=== PATIENT | female | born 1940 | race Caucasian/White ===

== ENCOUNTER 2016-09-29 13:19 | Inpatient (IN) | payer OTHER ==
[~2016-09-29] VITALS: Ht 157.5 cm; Wt 77.0 kg
[~2016-09-29 13:19] MED LIST: ALBU1AER9 INH; ASPI81TA21 PO; CITA40TA4 PO; CLOP1TAB15 PO; CRS20 PO; CYAN100020 PO; FLUT0.15; GARL400T4; HYZ/10015 PO; IMDSR60 PO; INSDGIPEN SC; LPR25 PO; METR0.754; MOME100A INH; NITR0.4S UT; NVLGI/PEN SC; OMEG10007 PO; PRLSR20 PO
[2016-09-29] MEDS ORDERED: ACETAMINOPHEN 500 MG TAB PO STA (13:49)
--- NOTE | 2016-09-29 13:55 | EMERGENCY ROOM VISIT NOTE ---
History First contact with patient: 13:36 Chief Complaint: LEG PAIN,LEG INJURY Stated Complaint: RIGHT LEG PAIN History of Present Illness The patient is a 76 year old female who presents to the Emergency Room via private vehicle accompanied by female with complaints of "right leg pain". The patient states that approximately one week ago she developed pain from the right groin down her right leg. She states that she is unable to identify any trauma or injury to the region. She rates the pain as a 10/10 and notes that it is been increasing over the past week. She has been using Tylenol at her assisted living facility without relief. She's never had this before. She denies any falls, trauma, urinary burning or vaginal discharge, abdominal pain, dental pain, fevers, chills. The patient was seen by her family doctor today around 11 AM and had x-rays of the right leg performed and then decided to come here for further evaluation and management. Review of Systems A complete 10-point Review of Systems was discussed with the patient, with pertinent positives and negatives listed in the History of Present Illness. All remaining Review of Systems questions can be considered negative unless otherwise specified. Past Medical/Surgical History Medical Problems: (1) Acute cholecystitis (2) Anemia in chronic kidney disease (CKD) (3) Breast cancer (4) CAD (coronary artery disease) (5) Carotid stenosis, non-symptomatic (6) CKD (chronic kidney disease), stage III (7) Depression (8) DIAB OLIVE WO COMPL, TYPE II OR UNSPEC TYPE, NOT UNCNTRLD (9) Diabetic gastroparesis (10) GERD (gastroesophageal reflux disease) (11) HYPERTENSION NOS (12) Hypoglycemia (13) LBBB (left bundle branch block) (14) Migraines (15) Severe right groin pain (16) Vertigo Surgical Problems: (1) H/O breast biopsy (2) H/O shoulder surgery (3) H/O tubal ligation (4) S/P angioplasty with stent (5) S/P appendectomy Family History Diabetes mellitus MOTHER FH: leukemia SISTER Heart disease FATHER MOTHER BROTHER Hypertension FATHER MOTHER Social History Smoking Status: Never Smoker Alcohol Use: none Drug Use: none Housing Status: lives alone Occupation Status: retired Current/Historical Medications Scheduled Albuterol Hfa (Ventolin Hfa), 2-4 PUFFS INH Q6H Anastrozole (Arimidex), 1 MG PO DAILY Aspirin Enteric Coated (Ecotrin Or Generic), 81 MG PO DAILY Clopidogrel (Plavix), 75 MG PO DAILY Cyanocobalamin (Vitamin B12), 1,000 MCG PO DAILY Docusate Sodium (Colace), 100 MG PO BID Erythromycin Delay Rel (Marek-Tab Delay Rel), 250 MG PO DAILY Fluticasone Propionate (Nasal) (Flonase Allergy Relief), 2 SPRAY NA DAILY Insulin Aspart (Novolog), 6 UNITS SQ QPM Insulin Aspart (Novolog), 10 UNITS SQ DAILYBL Insulin Aspart (Novolog), 4 UNITS SQ DAILYBB Insulin Glargine (Lantus), 60 UNITS SC QPM Isosorbide Mononitrate (Isosorbide Mononitrate ER), 60 MG PO DAILY Losartan Potassium (Cozaar), 100 MG PO DAILY Magnesium Oxide (Mag-Ox), 400 MG PO DAILY Metoprolol Tartrate (Lopressor), 25 MG PO BID Nitroglycerin (Nitrostat), 0.4 MG UT PRN Omeprazole (Prilosec), 20 MG PO DAILY Rosuvastatin Calcium (Crestor), 40 MG PO DAILY Senna/Docusate Sod (Senokot S), 1 TAB PO DAILY Scheduled PRN Mometasone Furoate-Formoterol (Dulera 100/5 Mcg), 1 AER INH for Shortness of Breath Miscellaneous Medications Dextrose (Diabetic Use) (Insta-Glucose) Metronidazole Hcl (Metronidazole) Pramoxine Hcl-Zinc Oxide (Tronolane) Allergies Coded Allergies: TARAH Inhibitors (Verified Allergy, Unknown, 09/29/16) Guaifenesin (Verified Allergy, Unknown, 09/29/16) Metformin (Verified Allergy, Unknown, 09/29/16) Phenylephrine (Verified Allergy, Unknown, 09/29/16) Physical Exam Vital Signs Date Time Temp Pulse Resp B/P (MAP) Pulse Ox O2 Delivery O2 Flow Rate FiO2 09/29/16 19:06 80 16 09/29/16 19:01 153/65 09/29/16 18:36 79 20 94 09/29/16 18:31 169/62 09/29/16 18:06 78 16 95 09/29/16 18:01 151/54 09/29/16 17:36 80 8 95 09/29/16 17:32 155/55 09/29/16 17:06 81 14 96 09/29/16 17:01 165/58 09/29/16 17:00 79 12 96 09/29/16 16:46 152/59 09/29/16 16:00 79 16 97 09/29/16 15:31 156/64 09/29/16 15:30 75 20 97 09/29/16 15:25 74 09/29/16 15:23 75 16 156/59 97 09/29/16 15:22 95 Room Air 09/29/16 15:21 156/59 09/29/16 13:22 36.5 74 18 147/63 97 Room Air Physical Exam VITAL SIGNS - Vital signs and nursing notes were reviewed. Patient is afebrile , blood pressure 147/63, nontoxic tachycardic and saturating well on room air at 97%. GENERAL -76-year-old female appearing her stated age who is in no acute distress. Communicates well with provider and answers questions appropriately. SKIN - Without rashes. The skin and integument overlying the right leg is unremarkable. HEAD - NC/AT. LUNGS - Chest wall symmetric without accessory muscle use, intercostals retractions, or central cyanosis. Normal vesicular breath sounds CTA B/L. No wheezes, rales, or rhonchi appreciated. CARDIAC - RRR with S1/S2. No murmur, rubs, or gallops appreciated. ABDOMEN - Abdominal contour without pulsations or visible masses. BS normoactive all four quadrants. There is tenderness in the region just superior to the periumbilical region. No palpable masses, hepatosplenomegaly, or ascites noted. EXTREMITIES - No clubbing or peripheral cyanosis. No pretibial edema present. There is tenderness to palpation overlying the right inguinal region anteriorly across the thigh into the zhou region. There is no foot tenderness. There is full range of motion of this region. There is no shortening or rotation of the leg. She is neurovascularly intact in the right lower extremity. +5/5 strength noted in UE/LE bilaterally. NEUROLOGIC - Cranial nerves II through XII grossly intact. Sensory intact to light touch throughout. PSYCH - A&O. Pt is very pleasant and interacts well with examiner. Medical Decision & Procedures ER Provider Diagnostic Interpretation: CT SCAN OF THE ABDOMEN AND PELVIS WITHOUT CONTRAST CLINICAL HISTORY: Right inguinal pain and periumbilical pain COMPARISON STUDY: 04/19/2007 TECHNIQUE: CT scan of the abdomen and pelvis was performed from the lung bases to the proximal femurs. Images are reviewed in the axial, sagittal, and coronal planes. IV contrast was not administered for this examination. CT DOSE: 851.15 mGycm FINDINGS: Lower chest: There are small bilateral pleural effusions. There is mild septal edema. There is bibasal atelectasis. The heart is mildly enlarged. There is a small hiatal hernia. Liver: The liver capsule is slightly serrated. This may indicate early cirrhosis. No focal masses are visualized in this noncontrast study. Gallbladder: Cholelithiasis. There is mild pericholecystic fluid. The gallbladder is not significantly distended. Spleen: The spleen is top normal in size measuring 11.7 cm. Pancreas: Unremarkable. Adrenal glands: Unremarkable. Kidneys: There is a 1 cm right renal calculus. There is a 12 mm exophytic left renal mass likely representing a cyst. There is mild prominence of the right renal collecting system and proximal ureter. No ureteral calculi are visualized. Bowel: Evaluation the bowel is limited due to the lack of intravenous and oral contrast. There is colonic diverticulosis. No acute peridiverticular inflammatory changes are visualized. There is a suture line at the cecal tip, possibly secondary to a prior appendectomy. The appendix is not visualized. There is evidence of a mesh repair of a ventral hernia. There are no transition zones indicate bowel obstruction. There is no free air. There is mild rectosigmoid wall thickening versus a nondistended segment. Peritoneum: There is no intraperitoneal free air or abdominal ascites. Vasculature: The abdominal aorta is normal in course and caliber. Adenopathy: None. Pelvic viscera: There is mild distention of the bladder Skeletal structures: No destructive osseous lesions are seen. IMPRESSION: 1. No evidence of bowel obstruction. No evidence of free air 2. Cholelithiasis. Mild pericholecystic fluid. No evidence of gallbladder distention 3. Cirrhotic liver morphology 4. Bilateral pleural effusions 5. Right-sided nephrolithiasis. Minimal fullness the right renal collecting system. No ureteral or bladder calculi identified 6. Mild bladder distention 7. Diverticulosis. No evidence of acute diverticulitis 8. Rectosigmoid wall thickening versus a nondistended segment Electronically signed by: Vishnu Ji M.D. 09/29/2016 4:26 PM Dictated Date/Time: 09/29/2016 4:16 PM RIGHT FEMUR 2 VIEWS ROUTINE CLINICAL HISTORY: 76 years-old Female presenting with Right leg pain from groin to ankle. TECHNIQUE: Frontal and lateral views of the right femur were obtained. COMPARISON: None. FINDINGS: Right hip joint congruent. Joint congruent. No significant degenerative change of the hip joint, however, apparent medial joint space loss at the right hip. No acute fracture. IMPRESSION: 1. No acute osseous injury of the right femur. Electronically signed by: Guevara Cruz M.D. 09/29/2016 2:36 PM Dictated Date/Time: 09/29/2016 2:35 PM [~ rep ct add3]] RIGHT VENOUS DOPP LOWER EXT UNILAT CLINICAL HISTORY: Right leg pain and edema Right pain. Edema. TECHNIQUE: Venous Doppler COMPARISON STUDY: None FINDINGS: Normal study IMPRESSION: Normal study The above report was generated using voice recognition software. It may contain grammatical, syntax or spelling errors. Electronically signed by: Jose Wood M.D. 09/29/2016 3:12 PM Dictated Date/Time: 09/29/2016 3:12 PM RIGHT TIBIA/FIBULA 2 VIEWS ROUTINE HISTORY: 76 years Female Right leg pain from groin to ankle COMPARISON: None available. TECHNIQUE: Frontal and lateral views of the right tibia and fibula. FINDINGS: The bones are mildly demineralized. There is moderate medial and patellofemoral compartment osteoarthritis with mild to moderate lateral compartment disease. There appears to be a small moderate joint effusion about the knee. No acute fracture or dislocation. There is spurring about the calcaneus. Vascular calcifications are seen. IMPRESSION: 1. Degenerative changes as above without acute fracture or dislocation. 2. Moderate knee joint effusion. 3. Peripheral vascular disease. The above report was generated using voice recognition software. It may contain grammatical, syntax or spelling errors. Laboratory Results 09/29/16 14:06 Red Blood Count 3.30, Mean Corpuscular Volume 98.8, Mean Corpuscular Hemoglobin 32.7, Mean Corpuscular Hemoglobin Concent 33.1, Mean Platelet Volume 9.7, Neutrophils (%) (Auto) 52.9, Lymphocytes (%) (Auto) 32.3, Monocytes (%) (Auto) 10.4, Eosinophils (%) (Auto) 3.6, Basophils (%) (Auto) 0.7, Neutrophils # (Auto ) 4.34, Lymphocytes # (Auto) 2.66, Monocytes # (Auto) 0.86, Eosinophils # (Auto ) 0.30, Basophils # (Auto) 0.06 09/29/16 14:06 Test 09/29/16 14:06 09/29/16 15:16 White Blood Count 8.23 K/uL (4.8-10.8) Red Blood Count 3.30 M/uL (4.2-5.4) Hemoglobin 10.8 g/dL (12.0-16.0) Hematocrit 32.6 % (37-47) Mean Corpuscular Volume 98.8 fL (80-100) Mean Corpuscular Hemoglobin 32.7 pg (25-34) Mean Corpuscular Hemoglobin Concent 33.1 g/dl (32-36) Platelet Count 136 K/uL (130-400) Mean Platelet Volume 9.7 fL (7.4-10.4) Neutrophils (%) (Auto) 52.9 % Lymphocytes (%) (Auto) 32.3 % Monocytes (%) (Auto) 10.4 % Eosinophils (%) (Auto) 3.6 % Basophils (%) (Auto) 0.7 % Neutrophils # (Auto) 4.34 K/uL (1.4-6.5) Lymphocytes # (Auto) 2.66 K/uL (1.2-3.4) Monocytes # (Auto) 0.86 K/uL (0.11-0.59) Eosinophils # (Auto) 0.30 K/uL (0-0.5) Basophils # (Auto) 0.06 K/uL (0-0.2) RDW Standard Deviation 51.4 fL (36.4-46.3) RDW Coefficient of Variation 14.3 % (11.5-14.5) Immature Granulocyte % (Auto) 0.1 % Immature Granulocyte # (Auto) 0.01 K/uL (0.00-0.02) Urine Color YELLOW Urine Appearance CLOUDY (CLEAR) Urine pH 7.5 (4.5-7.5) Urine Specific [place] 1.012 (1.000-1.030) Urine Protein TRACE (NEG) Urine Glucose (UA) NEG (NEG) Urine Ketones NEG (NEG) Urine Occult Blood 1+ (NEG) Urine Nitrite NEG (NEG) Urine Bilirubin NEG (NEG) Urine Urobilinogen NEG (NEG) Urine Leukocyte Esterase LARGE (NEG) Urine WBC (Auto) >30 /hpf (0-5) Urine RBC (Auto) 0-4 /hpf (0-4) Urine Hyaline Casts (Auto) 1-5 /lpf (0-5) Urine Epithelial Cells (Auto) 5-10 /lpf (0-5) Urine Bacteria (Auto) NEG (NEG) Anion Gap 8.0 mmol/L (3-11) Est Creatinine Clear Calc Drug Dose 22.6 ml/min Estimated GFR () 27.2 Estimated GFR (Non- 23.5 BUN/Creatinine Ratio 11.7 (10-20) Calcium Level 9.1 mg/dl (8.5-10.1) Total Bilirubin 0.4 mg/dl (0.2-1) Aspartate Amino Transf (AST/SGOT) 42 U/L (15-37) Alanine Aminotransferase (ALT/SGPT) 27 U/L (12-78) Alkaline Phosphatase 163 U/L (45-117) Total Protein 7.6 gm/dl (6.4-8.2) Albumin 2.7 gm/dl (3.4-5.0) Globulin 4.9 gm/dl (2.5-4.0) Albumin/Globulin Ratio 0.6 (0.9-2) Prothrombin Time 11.4 SECONDS (9.0-12.0) Prothromb Time International Ratio 1.1 (0.9-1.1) Activated Partial Thromboplast Time 28.2 SECONDS (21.0-31.0) Partial Thromboplastin Ratio 1.1 Medications Administered Medications (Trade) Dose Ordered Sig/Audra Route Start Time Stop Time Status Last Admin Dose Admin Acetaminophen (Tylenol Tab) 500 mg NOW STAT PO 09/29/16 13:49 09/29/16 13:52 DC 09/29/16 14:02 500 MG Piperacillin Sod/ Tazobactam Sod (Zosyn Iv) 4.5 gm NOW STAT IV 09/29/16 17:02 09/29/16 17:03 DC 09/29/16 17:02 4.5 GM Sodium Chloride 1,000 ml @ 200 mls/hr Q5H IV 09/29/16 17:15 09/29/16 21:23 DC 09/29/16 17:14 200 MLS/HR Hydromorphone HCl (Dilaudid Inj) 0.5 mg NOW STAT IV 09/29/16 19:03 09/29/16 19:05 DC 09/29/16 19:46 0.5 MG Ondansetron HCl (Zofran Inj) 4 mg NOW STAT IV 09/29/16 19:03 09/29/16 19:05 DC 09/29/16 19:45 4 MG Medical Decision Patient was seen and evaluated as above. After obtaining a thorough history and physical examination IV access was initiated and the above workup was performed. Patient was asked to us today with right leg pain. However on exam , abdominal pain is appreciated. Urinalysis reveals a UTI likely. CBC reveals no leukocytosis. Hemoglobin of 10.8 is noted. Coags are normal. CMP reveals BUN/creatinine elevated at 23, and 2.0 respectively. Random glucose elevated at 209. AST elevated at 42. Alkaline phosphatase high at 163. Radiographs of the femur, and tib-fib region are unremarkable except for a small effusion in the knee. Lower cavity ultrasound for DVT is negative. Abdomen and pelvis CT without intravenous or oral contrast was ordered with results as above. There is no acute or infectious finding however, there is pericholecystic fluid and gallstones. There is concern with the patient's correlated examination findings that there could be an early acute cholecystitis. Because of this and the patient's right leg pain of unknown etiology I do believe that further evaluation and management. She was given 4.5 g of Zosyn 1 and 200 mL of fluid per hour In the emergency department. I believe that inpatient management is warranted. Patient was also evaluated personally by my attending. She was given Tylenol initially for her pain, and then followed by Dilaudid and Zofran. Please refer to further documentation regarding her stay. In evaluation treatment this patient following differential diagnoses entertained: DVT, occult fracture, hip fracture, femur fracture, septic joint, sepsis, pyelonephritis, renal calculi, acute cholecystitis, UTI, among others. Impression Primary Impression: Leg pain, right Additional Impressions: Anemia Cholelithiasis pericholecystc fluid identified on CT Departure Information Dispostion Admitted as an inpatient Condition FAIR Referrals Mims, Johana F.,M.D. (PCP) Patient Instructions My [facility] Problem Qualifiers
[2016-09-29] MEDS ORDERED: SENN-65 PO (14:05)
[2016-09-29] MEDS ORDERED: NVLG SQ ×3 (14:05)
[2016-09-29] MEDS ORDERED: DOCU-94 PO (14:05)
[2016-09-29] MEDS ORDERED: ROSU40TA PO (14:05)
[2016-09-29] MEDS ORDERED: MTRCR45 (14:05)
[2016-09-29] MEDS ORDERED: ERY250 PO (14:05)
[2016-09-29] MEDS ORDERED: ISOS-10 PO (14:05)
[2016-09-29] MEDS ORDERED: DEXT40GE (14:05)
[2016-09-29] MEDS ORDERED: PRAM1CRE4 (14:05)
[2016-09-29] MEDS ORDERED: INSDGI SC (14:05)
[2016-09-29] MEDS ORDERED: ANAS1TAB19 PO (14:05)
[2016-09-29] MEDS ORDERED: MAGN400T6 PO (14:05)
[2016-09-29] MEDS ORDERED: VNTHFA/IN INH (14:05)
[2016-09-29] MEDS ORDERED: LOSA100T65 PO (14:05)
[2016-09-29] MEDS ORDERED: MOME100A INH (14:05)
[2016-09-29 14:19] LABS: BASO % 0.7 %; BASO ABS # 0.06 K/uL (0-0.2); COMPLETE YES; EOS % 3.6 %; HEMATOCRIT 32.6 % (37-47); IG% 0.1 %; LYMPH % 32.3 %; LYMPH ABS # 2.66 K/uL (1.2-3.4); MEAN CELL VOLUME 98.8 fL (80-100); MEAN CORPUSCULAR HEMOGLOBIN 32.7 pg (25-34); MEAN CORPUSCULAR HGB CONC 33.1 g/dl (32-36); MEAN PLATELET VOLUME 9.7 fL (7.4-10.4); MONO % 10.4 %; NEUT % 52.9 %; PLATELET COUNT 136 K/uL (130-400); WHITE BLOOD COUNT 8.23 K/uL (4.8-10.8)
[2016-09-29 14:25] LABS: URINE APPEARANCE CLOUDY (CLEAR); URINE BILIRUBIN NEG (NEG); URINE COLOR YELLOW; URINE NITRITE NEG (NEG); URINE PH 7.5 (4.5-7.5); URINE SPECIFIC GRAVITY 1.012 (1.000-1.030); UROBILINOGEN NEG (NEG); ZZUR CULT IF INDIC CLEAN CATCH YES
[2016-09-29 14:35] LABS: BUN/CREATININE RATIO 11.7 (10-20); CALCIUM 9.1 mg/dl (8.5-10.1); POTASSIUM 4.7 mmol/L (3.5-5.1)
[2016-09-29 14:38] LABS: ALB/GLOB RATIO 0.6 (0.9-2)
--- NOTE | 2016-09-29 14:38 | DIAGNOSTIC IMAGING REPORT ---
RIGHT FEMUR 2 VIEWS ROUTINE CLINICAL HISTORY: 76 years-old Female presenting with Right leg pain from groin to ankle. TECHNIQUE: Frontal and lateral views of the right femur were obtained. COMPARISON: None. FINDINGS: Right hip joint congruent. Joint congruent. No significant degenerative change of the hip joint, however, apparent medial joint space loss at the right hip. No acute fracture. IMPRESSION: 1. No acute osseous injury of the right femur. Electronically signed by: Guevara Cruz M.D. 09/29/2016 2:36 PM Dictated Date/Time: 09/29/2016 2:35 PM
--- NOTE | 2016-09-29 14:40 | DIAGNOSTIC IMAGING REPORT ---
RIGHT TIBIA/FIBULA 2 VIEWS ROUTINE HISTORY: 76 years Female Right leg pain from groin to ankle COMPARISON: None available. TECHNIQUE: Frontal and lateral views of the right tibia and fibula. FINDINGS: The bones are mildly demineralized. There is moderate medial and patellofemoral compartment osteoarthritis with mild to moderate lateral compartment disease. There appears to be a small moderate joint effusion about the knee. No acute fracture or dislocation. There is spurring about the calcaneus. Vascular calcifications are seen. IMPRESSION: 1. Degenerative changes as above without acute fracture or dislocation. 2. Moderate knee joint effusion. 3. Peripheral vascular disease. The above report was generated using voice recognition software. It may contain grammatical, syntax or spelling errors. Electronically signed by: David Hoffman M.D. 09/29/2016 2:38 PM Dictated Date/Time: 09/29/2016 2:36 PM
[2016-09-29 14:51] LABS: MANUAL MICROSCOPIC REQUIRED? NO; REVIEW REQ? NO; SULFASALICYLIC ACID POS (NEG)
--- NOTE | 2016-09-29 15:13 | DIAGNOSTIC IMAGING REPORT ---
RIGHT VENOUS DOPP LOWER EXT UNILAT CLINICAL HISTORY: Right leg pain and edema Right pain. Edema. TECHNIQUE: Venous Doppler COMPARISON STUDY: None FINDINGS: Normal study IMPRESSION: Normal study The above report was generated using voice recognition software. It may contain grammatical, syntax or spelling errors. Electronically signed by: Jose Wood M.D. 09/29/2016 3:12 PM Dictated Date/Time: 09/29/2016 3:12 PM
[2016-09-29 15:48] LABS: INR 1.1 (0.9-1.1); PARTIAL THROMBOPLASTIN RATIO 1.1; PROTHROMBIN TIME (PATIENT) 11.4 SECONDS (9.0-12.0)
--- NOTE | 2016-09-29 16:28 | DIAGNOSTIC IMAGING REPORT ---
CT SCAN OF THE ABDOMEN AND PELVIS WITHOUT CONTRAST CLINICAL HISTORY: Right inguinal pain and periumbilical pain COMPARISON STUDY: 04/19/2007 TECHNIQUE: CT scan of the abdomen and pelvis was performed from the lung bases to the proximal femurs. Images are reviewed in the axial, sagittal, and coronal planes. IV contrast was not administered for this examination. CT DOSE: 851.15 mGycm FINDINGS: Lower chest: There are small bilateral pleural effusions. There is mild septal edema. There is bibasal atelectasis. The heart is mildly enlarged. There is a small hiatal hernia. Liver: The liver capsule is slightly serrated. This may indicate early cirrhosis. No focal masses are visualized in this noncontrast study. Gallbladder: Cholelithiasis. There is mild pericholecystic fluid. The gallbladder is not significantly distended. Spleen: The spleen is top normal in size measuring 11.7 cm. Pancreas: Unremarkable. Adrenal glands: Unremarkable. Kidneys: There is a 1 cm right renal calculus. There is a 12 mm exophytic left renal mass likely representing a cyst. There is mild prominence of the right renal collecting system and proximal ureter. No ureteral calculi are visualized. Bowel: Evaluation the bowel is limited due to the lack of intravenous and oral contrast. There is colonic diverticulosis. No acute peridiverticular inflammatory changes are visualized. There is a suture line at the cecal tip, possibly secondary to a prior appendectomy. The appendix is not visualized. There is evidence of a mesh repair of a ventral hernia. There are no transition zones indicate bowel obstruction. There is no free air. There is mild rectosigmoid wall thickening versus a nondistended segment. Peritoneum: There is no intraperitoneal free air or abdominal ascites. Vasculature: The abdominal aorta is normal in course and caliber. Adenopathy: None. Pelvic viscera: There is mild distention of the bladder Skeletal structures: No destructive osseous lesions are seen. IMPRESSION: 1. No evidence of bowel obstruction. No evidence of free air 2. Cholelithiasis. Mild pericholecystic fluid. No evidence of gallbladder distention 3. Cirrhotic liver morphology 4. Bilateral pleural effusions 5. Right-sided nephrolithiasis. Minimal fullness the right renal collecting system. No ureteral or bladder calculi identified 6. Mild bladder distention 7. Diverticulosis. No evidence of acute diverticulitis 8. Rectosigmoid wall thickening versus a nondistended segment Electronically signed by: Vishnu Ji M.D. 09/29/2016 4:26 PM Dictated Date/Time: 09/29/2016 4:16 PM
--- NOTE | 2016-09-29 17:00 | EMERGENCY ROOM VISIT NOTE ---
ED Visit Note First contact with patient: 13:36 Patient was seen by our PA/AGILE TEST LEAD. I was involved in the patient's care and did evaluate the patient myself. I was involved in the care throughout the ER stay. The patient presents with right-sided abdominal pain and some right leg pain. Workup here suggest possible early acute cholecystitis, possible UTI. The patient has had intermittent vomiting. She feels she is worsening. She is not comfortable with discharge home. Admission/observation for IV antibiotics, IV hydration and further care is warranted.
[2016-09-29] MEDS ORDERED: PIPERACILLIN/TAZOBACTAM 4.5 GM/100ML D5W IV STA (17:02)
[2016-09-29] MEDS ORDERED: SODIUM CHLORIDE 0.9% 1000ML 1,000 ML IV SCH (17:15)
[2016-09-29] MEDS ORDERED: ACETAMINOPHEN 325 MG TAB PO PRN (19:00)
[2016-09-29] MEDS ORDERED: ONDANSETRON INJ 2 MG/ML 2 ML VIAL IV PRN (19:00)
[2016-09-29] MEDS ORDERED: GLUCOSE 40% GEL 15 GM TUBE PO PRN (19:00)
[2016-09-29] MEDS ORDERED: GLUCOSE 10 TABS/TUBE PO PRN (19:00)
[2016-09-29] MEDS ORDERED: DEXTROSE 50% 50 ML SYR IV PRN (19:00)
[2016-09-29] MEDS ORDERED: GLUCAGON FOR INJ 1 MG VIAL SQ PRN (19:00)
[2016-09-29] MEDS ORDERED: ONDANSETRON INJ 2 MG/ML 2 ML VIAL IV STA (19:03)
[2016-09-29] MEDS ORDERED: HYDROmorphone INJ 0.5 MG/0.5 ML SYR IV STA (19:03)
[2016-09-29] MEDS ORDERED: HYDROmorphone INJ 0.5 MG/0.5 ML SYR IV PRN (19:30)
[2016-09-29] MEDS ORDERED: NITROGLYCERIN 0.4 MG SL PER TAB CHARGE UT SCH (19:45)
[2016-09-29] MEDS ORDERED: HYDROCORTISONE ACETATE 25 MG SUPP PR PRN (19:45)
[2016-09-29 20:29] VITALS: BP 154/79; PULSE 80; TEMP 36.8; Ht 157.5 cm; Wt 77.0 kg
[2016-09-29] MEDS ORDERED: INSULIN ASPART 100 UNITS/ML 3 ML PEN SC SCH (21:00)
[2016-09-29] MEDS ORDERED: INSULIN GLARGINE SOLOSTAR 100 UNITS/ML 3 ML PEN SC SCH (21:00)
[2016-09-29] MEDS ORDERED: PIPERACILL/TAZOBAC CONSULT ACTIVE PRN (21:30)
[2016-09-29] MEDS: DOCUSATE SODIUM 100 MG CAP PO SCH (22:00)
[2016-09-29] MEDS: HEPARIN SOD 5000 UNIT/0.5 ML CARP SQ SCH (22:39)
[2016-09-29] MEDS: METOPROLOL TARTRATE 25 MG TAB PO SCH (22:39)
--- NOTE | 2016-09-29 22:39 | Surgery Consultation ---
Consultation Date of Consultation: Sep 29, 2016. Attending Physician: Lyric Westfall MD History of Present Illness The patient is a 76 year old female who presents to the Emergency Room via private vehicle accompanied by female with complaints of "right leg pain". The patient states that approximately one week ago she developed pain from the right groin down her right leg. She states that she is unable to identify any trauma or injury to the region. She rates the pain as a 10/10 and notes that it is been increasing over the past week. She has been using Tylenol at her assisted living facility without relief. She's never had this before. She denies any falls, trauma, urinary burning or vaginal discharge, abdominal pain, dental pain, fevers, chills. The patient was seen by her family doctor today around 11 AM and had x-rays of the right leg performed and then decided to come here for further evaluation and management. I got a call for consult this pt based on pt had CT scan which revealing cholelithiasis, now, pt denies abdominal pain, but some nausea, no vomiting, pt denies fever, no diarrhea, Past Medical/Surgical History Medical Problems: (1) Altered mental status Status: Acute (2) Chest pain Status: Acute (3) Chronic kidney disease (CKD) Status: Acute (4) Diabetes Status: Acute (5) Fall in home Status: Acute (6) Headache Status: Acute (7) Hypoglycemia Status: Acute (8) Hypokalemia Status: Acute (9) Hypokalemia Status: Acute (10) Hypomagnesemia Status: Acute (11) Hypomagnesemia Status: Acute (12) Hyponatremia Status: Acute (13) Hypophosphatemia Status: Acute (14) Nausea Status: Acute (15) Pneumonia Status: Acute (16) UTI (urinary tract infection) Status: Acute (17) Weakness Status: Acute Family History Diabetes mellitus MOTHER FH: leukemia SISTER Heart disease FATHER MOTHER BROTHER Hypertension FATHER MOTHER Social History Smoking Status: Never Smoker Smokeless Tobacco Use: No Alcohol Use: none Drug Use: none Housing Status: lives alone Occupation Status: retired Allergies Coded Allergies: TARAH Inhibitors (Verified Allergy, Unknown, 09/29/16) Guaifenesin (Verified Allergy, Unknown, 09/29/16) Metformin (Verified Allergy, Unknown, 09/29/16) Phenylephrine (Verified Allergy, Unknown, 09/29/16) Home Medications Scheduled Albuterol Hfa (Ventolin Hfa), 2-4 PUFFS INH Q6H Anastrozole (Arimidex), 1 MG PO DAILY Aspirin Enteric Coated (Ecotrin Or Generic), 81 MG PO DAILY Clopidogrel (Plavix), 75 MG PO DAILY Cyanocobalamin (Vitamin B12), 1,000 MCG PO DAILY Docusate Sodium (Colace), 100 MG PO BID Erythromycin Delay Rel (Marek-Tab Delay Rel), 250 MG PO DAILY Fluticasone Propionate (Nasal) (Flonase Allergy Relief), 2 SPRAY NA DAILY Insulin Aspart (Novolog), 6 UNITS SQ QPM Insulin Aspart (Novolog), 10 UNITS SQ DAILYBL Insulin Aspart (Novolog), 4 UNITS SQ DAILYBB Insulin Glargine (Lantus), 60 UNITS SC QPM Isosorbide Mononitrate (Isosorbide Mononitrate ER), 60 MG PO DAILY Losartan Potassium (Cozaar), 100 MG PO DAILY Magnesium Oxide (Mag-Ox), 400 MG PO DAILY Metoprolol Tartrate (Lopressor), 25 MG PO BID Nitroglycerin (Nitrostat), 0.4 MG UT PRN Omeprazole (Prilosec), 20 MG PO DAILY Rosuvastatin Calcium (Crestor), 40 MG PO DAILY Senna/Docusate Sod (Senokot S), 1 TAB PO DAILY Scheduled PRN Mometasone Furoate-Formoterol (Dulera 100/5 Mcg), 1 AER INH for Shortness of Breath Miscellaneous Medications Dextrose (Diabetic Use) (Insta-Glucose) Metronidazole Hcl (Metronidazole) Pramoxine Hcl-Zinc Oxide (Tronolane) Current Inpatient Medications Current Inpatient Medications Medications (Trade) Dose Ordered Sig/Audra Route Start Time Stop Time Status Last Admin Dose Admin Acetaminophen (Tylenol Tab) 650 mg Q4H PRN PO 09/29/16 19:00 10/29/16 18:59 Ondansetron HCl (Zofran Inj) 4 mg Q6H PRN IV 09/29/16 19:00 10/29/16 18:59 Heparin Sodium (Porcine) (Heparin Sq 5000 Unit/0.5ml) 5,000 unit Q12H SQ 09/29/16 22:00 10/29/16 21:59 Insulin Aspart (novoLOG ASPART) SLIDING SCALE If C... ACHS SC 09/29/16 21:00 10/29/16 20:59 Glucose (Glucose 40% Gel) 15-30 GRAMS 15 GRAMS... UD PRN PO 09/29/16 19:00 10/29/16 18:59 Glucose (Glucose Chew Tab) 4-8 Tablets 4 Tabl... UD PRN PO 09/29/16 19:00 10/29/16 18:59 Dextrose (Dextrose 50% 50ML Syringe) 25-50ML OF 50% DW IV FOR... UD PRN IV 09/29/16 19:00 10/29/16 18:59 Glucagon (Glucagon Inj) 1 mg UD PRN SQ 09/29/16 19:00 10/29/16 18:59 Hydromorphone HCl (Dilaudid Inj) 0.5 mg Q4H PRN IV 09/29/16 19:30 10/13/16 19:29 Albuterol (Ventolin Hfa Inhaler) 2 puffs Q6 INH 09/30/16 00:00 10/30/16 00:00 Anastrozole (Arimidex Tab) 1 mg DAILY PO 09/30/16 09:00 10/30/16 08:59 Aspirin (Ecotrin Tab) 81 mg DAILY PO 09/30/16 09:00 10/30/16 08:59 Clopidogrel Bisulfate (plAVix TAB) 75 mg DAILY PO 09/30/16 09:00 10/30/16 08:59 Docusate Sodium (coLACE CAP) 100 mg BID PO 09/29/16 21:00 10/29/16 20:59 09/29/16 22:00 100 MG Erythromycin (Marek-Tab Delay Rel Tab) 250 mg DAILY PO 09/30/16 09:00 10/30/16 08:59 Fluticasone Propionate (Flonase Nasal [place]) 2 sprays DAILY NA 09/30/16 09:00 10/30/16 08:59 Insulin Glargine (Lantus Solostar Pen) 60 units QPM SC 09/29/16 21:00 10/29/16 20:59 Isosorbide Mononitrate (Imdur Ext Rel Tab) 60 mg DAILY PO 09/30/16 09:00 10/30/16 08:59 Losartan Potassium (coZAAR TAB) 100 mg DAILY PO 09/30/16 09:00 10/30/16 08:59 Magnesium Oxide (Mag-Ox Tab) 400 mg DAILY PO 09/30/16 09:00 10/30/16 08:59 Metoprolol Tartrate (Lopressor Tab) 25 mg BID PO 09/29/16 21:00 10/29/16 20:59 Nitroglycerin (Nitrostat Tab) 0.4 mg PRN UT 09/29/16 19:45 10/29/16 19:44 Rosuvastatin Calcium (Crestor Tab) 40 mg DAILY PO 09/30/16 09:00 10/30/16 08:59 Senna/Docusate Sodium (Senokot S Tab) 1 tab DAILY PO 09/30/16 09:00 10/30/16 08:59 Cyanocobalamin (Vitamin B-12 Tab) 1,000 mcg DAILY PO 09/30/16 09:00 10/30/16 08:59 Pantoprazole Sodium (Protonix Tab) 40 mg DAILY PO 09/30/16 09:00 10/30/16 08:59 Hydrocortisone Acetate (Anusol Hc Supp) 25 mg HS PRN [place] 09/29/16 19:45 10/29/16 19:44 Piperacillin Sod/ Tazobactam Sod 3.375 gm/Dextrose 115 ml @ 28.75 mls/ hr Q8H IV 09/30/16 00:00 10/10/16 00:00 Piperacillin Sod/ Tazobactam Sod (Consult) 1 ea UD PRN N/A 09/29/16 21:30 10/29/16 21:29 Review of Systems Constitutional: No fever, No chills, No sweats, No weight loss, No weakness, No fatigue, No problem reported Eyes: No worsening of vision, No eye pain, No redness, No discharge, No diplopia, No problem reported ENT: No hearing loss, No unusual epistaxis, No nasal symptoms, No sore throat, No tinnitus, No dental problems, No trouble swallowing, No problem reported Respiratory: No cough, No sputum, No wheezing, No shortness of breath, No dyspnea on exertion, No dyspnea at rest, No hemoptysis, No problem reported Cardiovascular: No chest pain, No orthopnea, No PND, No edema, No claudication , No palpitations, No problem reported Abdomen: + nausea, + problem reported (S/P appendectomy), No pain, No vomiting , No diarrhea, No constipation, No GI bleeding Musculoskeletal: No joint pain, No muscle pain, No swelling, No calf pain, No problem reported Neurologic: No memory loss, No paralysis, No weakness, No numbness/tingling, No vertigo, No balance problems, No problem reported Psychiatric: No depression symptoms, No anhedonism, No anxiety, No insomnia, No substance abuse, No problem reported Endocrine: + problem reported (DM), No fatigue, No excessive thirst, No excessive urination Hematologic / Lymphatic: No abnormal bleeding/bruising, No clotting problems, No swollen lymph nodes, No night sweats, No problem reported Integumentary: No rash, No itch, No new/changing skin lesions, No color change , No bleeding, No problem reported Physical Exam Date Time Temp Pulse Resp B/P (MAP) Pulse Ox O2 Delivery O2 Flow Rate FiO2 09/29/16 20:29 36.8 80 18 154/79 Room Air 09/29/16 20:03 36.8 77 16 156/66 94 09/29/16 19:52 36.8 77 16 156/66 94 Room Air 09/29/16 19:25 78 09/29/16 19:06 80 16 09/29/16 19:01 153/65 09/29/16 18:36 79 20 94 09/29/16 18:31 169/62 09/29/16 18:06 78 16 95 09/29/16 18:01 151/54 09/29/16 17:36 80 8 95 09/29/16 17:32 155/55 09/29/16 17:06 81 14 96 09/29/16 17:01 165/58 09/29/16 17:00 79 12 96 09/29/16 16:46 152/59 09/29/16 16:00 79 16 97 09/29/16 15:31 156/64 09/29/16 15:30 75 20 97 09/29/16 15:25 74 09/29/16 15:23 75 16 156/59 97 09/29/16 15:22 95 Room Air 09/29/16 15:21 156/59 09/29/16 13:22 36.5 74 18 147/63 97 Room Air General Appearance: WD/WN, no apparent distress Head: normocephalic, atraumatic Eyes: normal inspection ENT: normal ENT inspection Neck: supple, no JVD Respiratory/Chest: chest non-tender, lungs clear, normal breath sounds, no respiratory distress Cardiovascular: regular rate, rhythm, no edema, no gallop, no JVD, no murmur Abdomen/GI: normal bowel sounds, soft, + tenderness (tenderness at right side abdomen, no rebound pain, ) Extremities/Musculoskelatal: normal inspection, no calf tenderness, + calf tenderness (PT, DP pulse +, right femoral pulse ++) Neurologic/Psych: no motor/sensory deficits, alert, normal mood/affect Skin: normal color, warm/dry Laboratory Results Last 24 Hours Test 09/29/16 14:06 09/29/16 15:16 09/29/16 20:42 White Blood Count 8.23 K/uL Red Blood Count 3.30 M/uL Hemoglobin 10.8 g/dL Hematocrit 32.6 % Mean Corpuscular Volume 98.8 fL Mean Corpuscular Hemoglobin 32.7 pg Mean Corpuscular Hemoglobin Concent 33.1 g/dl Platelet Count 136 K/uL Mean Platelet Volume 9.7 fL Neutrophils (%) (Auto) 52.9 % Lymphocytes (%) (Auto) 32.3 % Monocytes (%) (Auto) 10.4 % Eosinophils (%) (Auto) 3.6 % Basophils (%) (Auto) 0.7 % Neutrophils # (Auto) 4.34 K/uL Lymphocytes # (Auto) 2.66 K/uL Monocytes # (Auto) 0.86 K/uL Eosinophils # (Auto) 0.30 K/uL Basophils # (Auto) 0.06 K/uL RDW Standard Deviation 51.4 fL RDW Coefficient of Variation 14.3 % Immature Granulocyte % (Auto) 0.1 % Immature Granulocyte # (Auto) 0.01 K/uL Urine Color YELLOW Urine Appearance CLOUDY Urine pH 7.5 Urine Specific [place] 1.012 Urine Protein TRACE Urine Glucose (UA) NEG Urine Ketones NEG Urine Occult Blood 1+ Urine Nitrite NEG Urine Bilirubin NEG Urine Urobilinogen NEG Urine Leukocyte Esterase LARGE Urine WBC (Auto) >30 /hpf Urine RBC (Auto) 0-4 /hpf Urine Hyaline Casts (Auto) 1-5 /lpf Urine Epithelial Cells (Auto) 5-10 /lpf Urine Bacteria (Auto) NEG Sodium Level 137 mmol/L Potassium Level 4.7 mmol/L Chloride Level 105 mmol/L Carbon Dioxide Level 24 mmol/L Anion Gap 8.0 mmol/L Blood Urea Nitrogen 23 mg/dl Creatinine 2.00 mg/dl Est Creatinine Clear Calc Drug Dose 22.6 ml/min Estimated GFR () 27.2 Estimated GFR (Non- 23.5 BUN/Creatinine Ratio 11.7 Random Glucose 209 mg/dl Calcium Level 9.1 mg/dl Total Bilirubin 0.4 mg/dl Aspartate Amino Transf (AST/SGOT) 42 U/L Alanine Aminotransferase (ALT/SGPT) 27 U/L Alkaline Phosphatase 163 U/L Total Protein 7.6 gm/dl Albumin 2.7 gm/dl Globulin 4.9 gm/dl Albumin/Globulin Ratio 0.6 Prothrombin Time 11.4 SECONDS Prothromb Time International Ratio 1.1 Activated Partial Thromboplast Time 28.2 SECONDS Partial Thromboplastin Ratio 1.1 Bedside Glucose 114 mg/dl Assessment & Plan CT scan-IMPRESSION: 1. No evidence of bowel obstruction. No evidence of free air 2. Cholelithiasis. Mild pericholecystic fluid. No evidence of gallbladder distention 3. Cirrhotic liver morphology 4. Bilateral pleural effusions 5. Right-sided nephrolithiasis. Minimal fullness the right renal collecting system. No ureteral or bladder calculi identified 6. Mild bladder distention 7. Diverticulosis. No evidence of acute diverticulitis 8. Rectosigmoid wall thickening versus a nondistended segment Assessment:The patient is a 76 year old female who presents to the Emergency Room via private vehicle accompanied by female with complaints of "right leg pain".CT scan- see above. IMP: cholelithiasis, Plan, recommend to do HIDA scan, to R/O acute cholecystitis, repeat labs in am, will F/U
[2016-09-29] MEDS ORDERED: INSULIN GLARGINE SOLOSTAR 100 UNITS/ML 3 ML PEN SC ONE (22:43)
--- NOTE | 2016-09-29 22:49 | History and Physical ---
History & Physical Date & Time of Service: Sep 29, 2016 at 19:47 Chief Complaint: Right Leg Pain Primary Care Physician: Johana Mims M.D. History of Present Illness Source: patient, family Pt is a 76 yo female with a h/o CAD s/p ULISSES 2008, aortic stenosis, mitral regurgitation, KIARA, LBBB, HTN, DMII, CKD Stage IV, cirrhosis of the liver, anemia of CKD, gastroparesis, GERD, Breast CA, depression, migraines, and vertigo, who presents to the ER with 6 days of progressively worsening right lower extremity pain. She normally ambulates with a walker and has assistance with most tasks at her AL facility and cannot recall an injury and has not had any falls. Her pain came on last week in the right groin and spreads down the anterior entire right lower extremity. Her daughter had not seen her in a few days and when she saw her yesterday, she noted the leg to be swollen. The pt states that the pain is severe all the way into her toes. She has never had anything like this before. Doppler of the RLE was negative for DVT. The pain is worse with any movement or palpation of the right leg but mostly with hip flexion. She is still able to ambulate and bear weight with her walker but has a lot of pain. In the ER, she had multiple xrays taken and because of some elevated LFTs and the right inguinal pain, she had a CT abd/pel performed which noted cholelithiasis and some mild pericholecystic fluid. Pt denies any recent abdominal pain, but was tender on palpation in the RUQ. She has been afebrile, did not have a leukocytosis. SHe has occasional nausea and vomiting after eating which is a common problem for her since her diagnosis of gastroparesis. ER PA called me to assess for admission for possible acute cholecystitis as well as her intractable RLE pain. Past Medical/Surgical History PMH: Aortic stenosis Mitral regurgitation Cirrhosis of the liver-unknown etiology Depression Anemia in chronic kidney disease (CKD) H/o Breast cancer s/p lumpectomy and XRT, on Arimidex CAD (coronary artery disease)2006 - multivessel angioplasty and PCI Carotid stenosis, non-symptomatic CKD (chronic kidney disease), stage IV Depression DMII Diabetic gastroparesis GERD HYPERTENSION LBBB Migraines Vertigo PSH: Right breast lumpectomy Shoulder surgery H/O tubal ligation Appendectomy Knee arthroscopy Umbilical hernia repair Colonoscopy and EGD-in approx 2014--> normal Family History Diabetes mellitus MOTHER FH: leukemia SISTER Heart disease FATHER MOTHER BROTHER Hypertension FATHER MOTHER Social History Smoking Status: Never Smoker Alcohol Use: none Drug Use: none Marital Status: Housing status: assisted living Occupational Status: retired Immunizations History of Influenza Vaccine: Yes Influenza Vaccine Date: Dec 03, 2015 History of Tetanus Vaccine?: Yes Tetanus Immunization Date: Nov 15, 2008 History of Pneumococcal: Yes Pneumococcal Date: May 10, 2015 Multi-Drug Resistant Organisms History of MDRO: No Allergies Coded Allergies: TARAH Inhibitors (Verified Allergy, Unknown, 09/29/16) Guaifenesin (Verified Allergy, Unknown, 09/29/16) Metformin (Verified Allergy, Unknown, 09/29/16) Phenylephrine (Verified Allergy, Unknown, 09/29/16) Home Medications Scheduled Albuterol Hfa (Ventolin Hfa), 2-4 PUFFS INH Q6H Anastrozole (Arimidex), 1 MG PO DAILY Aspirin Enteric Coated (Ecotrin Or Generic), 81 MG PO DAILY Clopidogrel (Plavix), 75 MG PO DAILY Cyanocobalamin (Vitamin B12), 1,000 MCG PO DAILY Docusate Sodium (Colace), 100 MG PO BID Erythromycin Delay Rel (Marek-Tab Delay Rel), 250 MG PO DAILY Fluticasone Propionate (Nasal) (Flonase Allergy Relief), 2 SPRAY NA DAILY Insulin Aspart (Novolog), 6 UNITS SQ QPM Insulin Aspart (Novolog), 10 UNITS SQ DAILYBL Insulin Aspart (Novolog), 4 UNITS SQ DAILYBB Insulin Glargine (Lantus), 60 UNITS SC QPM Isosorbide Mononitrate (Isosorbide Mononitrate ER), 60 MG PO DAILY Losartan Potassium (Cozaar), 100 MG PO DAILY Magnesium Oxide (Mag-Ox), 400 MG PO DAILY Metoprolol Tartrate (Lopressor), 25 MG PO BID Nitroglycerin (Nitrostat), 0.4 MG UT PRN Omeprazole (Prilosec), 20 MG PO DAILY Rosuvastatin Calcium (Crestor), 40 MG PO DAILY Senna/Docusate Sod (Senokot S), 1 TAB PO DAILY Scheduled PRN Mometasone Furoate-Formoterol (Dulera 100/5 Mcg), 1 AER INH for Shortness of Breath Miscellaneous Medications Dextrose (Diabetic Use) (Insta-Glucose) Metronidazole Hcl (Metronidazole) Pramoxine Hcl-Zinc Oxide (Tronolane) Review of Systems Constitutional: No fever, No chills, No sweats Eyes: No problem reported ENT: No problem reported Respiratory: No shortness of breath Cardiovascular: + edema (right lower extremity), No chest pain Abdomen: + pain (RUQ only when touched), + nausea (intermittently if eats too much at once) Musculoskeletal: + problem reported (as per HPI) Genitourinary - Female: No problem reported Neurologic: No problem reported Psychiatric: No problem reported Endocrine: No problem reported Hematologic / Lymphatic: No problem reported Integumentary: No rash, No problem reported Allergic / Immunologic: No problem reported Physical Exam Vital Signs Date Time Temp Pulse Resp B/P (MAP) Pulse Ox O2 Delivery O2 Flow Rate FiO2 09/29/16 19:25 78 09/29/16 19:06 80 16 09/29/16 19:01 153/65 09/29/16 18:36 79 20 94 09/29/16 18:31 169/62 09/29/16 18:06 78 16 95 09/29/16 18:01 151/54 09/29/16 17:36 80 8 95 09/29/16 17:32 155/55 09/29/16 17:06 81 14 96 09/29/16 17:01 165/58 09/29/16 17:00 79 12 96 09/29/16 16:46 152/59 09/29/16 16:00 79 16 97 09/29/16 15:31 156/64 09/29/16 15:30 75 20 97 09/29/16 15:25 74 09/29/16 15:23 75 16 156/59 97 09/29/16 15:22 95 Room Air 09/29/16 15:21 156/59 09/29/16 13:22 36.5 74 18 147/63 97 Room Air General Appearance: WD/WN, + mild distress (with any movement or palpation of RLE), + obese Head: normocephalic, atraumatic Eyes: normal inspection, PERRL, sclerae normal ENT: hearing grossly normal, pharynx normal Neck: supple, trachea midline Respiratory/Chest: lungs clear, normal breath sounds, no respiratory distress, no accessory muscle use Cardiovascular: regular rate, rhythm, normal peripheral pulses (2+ DP and PT pulses bilaterally, 2+ femoral pulses bilat), + systolic murmur (3/6 high pitched at LLSB and 2/6 at RUSB), + pertinent finding (trace pitting edema RLE) Abdomen/GI: normal bowel sounds, soft, no organomegaly, + tenderness (in RUQ without guarding or rebound) Genitourinary - Female: external genitalia normal Back: normal inspection Extremities/Musculoskelatal: + pertinent finding (significant ++TTP over right inguinal region and right mons pubis and then with +TTP but less so in right anterior thigh and tibia, good cap refill in distal extremity, no hernia palpable in inguinal or femoral region, unable to actively move RLE without causing severe pain in rt groin, passive motion of rt hip flexor causes severe pain, Right knee with mild effusion, no significant TTP over knee or ankle joints) Neurologic/Psych: alert, normal mood/affect, oriented x 3 Skin: normal color, warm/dry, no rash Lymphatic: no adenopathy Diagnostics Laboratory Results Results Past 24 Hours Test 09/29/16 14:06 09/29/16 15:16 Range/Units White Blood Count 8.23 4.8-10.8 K/uL Red Blood Count 3.30 4.2-5.4 M/uL Hemoglobin 10.8 12.0-16.0 g/dL Hematocrit 32.6 37-47 % Mean Corpuscular Volume 98.8 80-100 fL Mean Corpuscular Hemoglobin 32.7 25-34 pg Mean Corpuscular Hemoglobin Concent 33.1 32-36 g/dl Platelet Count 136 130-400 K/uL Mean Platelet Volume 9.7 7.4-10.4 fL Neutrophils (%) (Auto) 52.9 % Lymphocytes (%) (Auto) 32.3 % Monocytes (%) (Auto) 10.4 % Eosinophils (%) (Auto) 3.6 % Basophils (%) (Auto) 0.7 % Neutrophils # (Auto) 4.34 1.4-6.5 K/uL Lymphocytes # (Auto) 2.66 1.2-3.4 K/uL Monocytes # (Auto) 0.86 0.11-0.59 K/uL Eosinophils # (Auto) 0.30 0-0.5 K/uL Basophils # (Auto) 0.06 0-0.2 K/uL RDW Standard Deviation 51.4 36.4-46.3 fL RDW Coefficient of Variation 14.3 11.5-14.5 % Immature Granulocyte % (Auto) 0.1 % Immature Granulocyte # (Auto) 0.01 0.00-0.02 K/uL Urine Color YELLOW Urine Appearance CLOUDY CLEAR Urine pH 7.5 4.5-7.5 Urine Specific [place] 1.012 1.000-1.030 Urine Protein TRACE NEG Urine Glucose (UA) NEG NEG Urine Ketones NEG NEG Urine Occult Blood 1+ NEG Urine Nitrite NEG NEG Urine Bilirubin NEG NEG Urine Urobilinogen NEG NEG Urine Leukocyte Esterase LARGE NEG Urine WBC (Auto) >30 0-5 /hpf Urine RBC (Auto) 0-4 0-4 /hpf Urine Hyaline Casts (Auto) 1-5 0-5 /lpf Urine Epithelial Cells (Auto) 5-10 0-5 /lpf Urine Bacteria (Auto) NEG NEG Sodium Level 137 136-145 mmol/L Potassium Level 4.7 3.5-5.1 mmol/L Chloride Level 105 98-107 mmol/L Carbon Dioxide Level 24 21-32 mmol/L Anion Gap 8.0 3-11 mmol/L Blood Urea Nitrogen 23 7-18 mg/dl Creatinine 2.00 0.60-1.20 mg/dl Est Creatinine Clear Calc Drug Dose 22.6 ml/min Estimated GFR () 27.2 Estimated GFR (Non- 23.5 BUN/Creatinine Ratio 11.7 10-20 Random Glucose 209 70-99 mg/dl Calcium Level 9.1 8.5-10.1 mg/dl Total Bilirubin 0.4 0.2-1 mg/dl Aspartate Amino Transf (AST/SGOT) 42 15-37 U/L Alanine Aminotransferase (ALT/SGPT) 27 12-78 U/L Alkaline Phosphatase 163 45-117 U/L Total Protein 7.6 6.4-8.2 gm/dl Albumin 2.7 3.4-5.0 gm/dl Globulin 4.9 2.5-4.0 gm/dl Albumin/Globulin Ratio 0.6 0.9-2 Prothrombin Time 11.4 9.0-12.0 SECONDS Prothromb Time International Ratio 1.1 0.9-1.1 Activated Partial Thromboplast Time 28.2 21.0-31.0 SECONDS Partial Thromboplastin Ratio 1.1 Microbiology Results 09/29/16 Urine Culture, Received Pending Diagnostic Radiology CT SCAN OF THE ABDOMEN AND PELVIS WITHOUT CONTRAST CLINICAL HISTORY: Right inguinal pain and periumbilical pain COMPARISON STUDY: 04/19/2007 TECHNIQUE: CT scan of the abdomen and pelvis was performed from the lung bases to the proximal femurs. Images are reviewed in the axial, sagittal, and coronal planes. IV contrast was not administered for this examination. CT DOSE: 851.15 mGycm FINDINGS: Lower chest: There are small bilateral pleural effusions. There is mild septal edema. There is bibasal atelectasis. The heart is mildly enlarged. There is a small hiatal hernia. Liver: The liver capsule is slightly serrated. This may indicate early cirrhosis. No focal masses are visualized in this noncontrast study. Gallbladder: Cholelithiasis. There is mild pericholecystic fluid. The gallbladder is not significantly distended. Spleen: The spleen is top normal in size measuring 11.7 cm. Pancreas: Unremarkable. Adrenal glands: Unremarkable. Kidneys: There is a 1 cm right renal calculus. There is a 12 mm exophytic left renal mass likely representing a cyst. There is mild prominence of the right renal collecting system and proximal ureter. No ureteral calculi are visualized. Bowel: Evaluation the bowel is limited due to the lack of intravenous and oral contrast. There is colonic diverticulosis. No acute peridiverticular inflammatory changes are visualized. There is a suture line at the cecal tip, possibly secondary to a prior appendectomy. The appendix is not visualized. There is evidence of a mesh repair of a ventral hernia. There are no transition zones indicate bowel obstruction. There is no free air. There is mild rectosigmoid wall thickening versus a nondistended segment. Peritoneum: There is no intraperitoneal free air or abdominal ascites. Vasculature: The abdominal aorta is normal in course and caliber. Adenopathy: None. Pelvic viscera: There is mild distention of the bladder Skeletal structures: No destructive osseous lesions are seen. IMPRESSION: 1. No evidence of bowel obstruction. No evidence of free air 2. Cholelithiasis. Mild pericholecystic fluid. No evidence of gallbladder distention 3. Cirrhotic liver morphology 4. Bilateral pleural effusions 5. Right-sided nephrolithiasis. Minimal fullness the right renal collecting system. No ureteral or bladder calculi identified 6. Mild bladder distention 7. Diverticulosis. No evidence of acute diverticulitis 8. Rectosigmoid wall thickening versus a nondistended segment RIGHT TIBIA/FIBULA 2 VIEWS ROUTINE HISTORY: 76 years Female Right leg pain from groin to ankle COMPARISON: None available. TECHNIQUE: Frontal and lateral views of the right tibia and fibula. FINDINGS: The bones are mildly demineralized. There is moderate medial and patellofemoral compartment osteoarthritis with mild to moderate lateral compartment disease. There appears to be a small moderate joint effusion about the knee. No acute fracture or dislocation. There is spurring about the calcaneus. Vascular calcifications are seen. IMPRESSION: 1. Degenerative changes as above without acute fracture or dislocation. 2. Moderate knee joint effusion. 3. Peripheral vascular disease. RIGHT VENOUS DOPP LOWER EXT UNILAT CLINICAL HISTORY: Right leg pain and edema Right pain. Edema. TECHNIQUE: Venous Doppler COMPARISON STUDY: None FINDINGS: Normal study IMPRESSION: Normal study RIGHT FEMUR 2 VIEWS ROUTINE CLINICAL HISTORY: 76 years-old Female presenting with Right leg pain from groin to ankle. TECHNIQUE: Frontal and lateral views of the right femur were obtained. COMPARISON: None. FINDINGS: Right hip joint congruent. Joint congruent. No significant degenerative change of the hip joint, however, apparent medial joint space loss at the right hip. No acute fracture. IMPRESSION: 1. No acute osseous injury of the right femur. Impression Assessment and Plan Pt is a 76 yo female with a h/o CAD s/p ULISSES 2008, aortic stenosis, mitral regurgitation, KIARA, LBBB, HTN, DMII, CKD Stage IV, cirrhosis of the liver, anemia of CKD, gastroparesis, GERD, Breast CA, depression, migraines, and vertigo, who presents to the ER with 6 days of progressively worsening right lower extremity pain. She normally ambulates with a walker and has assistance with most tasks at her AL facility and cannot recall an injury and has not had any falls. Her pain came on last week in the right groin and spreads down the anterior entire right lower extremity. Her daughter had not seen her in a few days and when she saw her yesterday, she noted the leg to be swollen. The pt states that the pain is severe all the way into her toes. She has never had anything like this before. Doppler of the RLE was negative for DVT. The pain is worse with any movement or palpation of the right leg but mostly with hip flexion. She is still able to ambulate and bear weight with her walker but has a lot of pain. In the ER, she had multiple xrays taken and because of some elevated LFTs and the right inguinal pain, she had a CT abd/pel performed which noted cholelithiasis and some mild pericholecystic fluid. Pt denies any recent abdominal pain, but was tender on palpation in the RUQ. She has been afebrile, did not have a leukocytosis. SHe has occasional nausea and vomiting after eating which is a common problem for her since her diagnosis of gastroparesis. ER PA called me to assess for admission for possible acute cholecystitis as well as her intractable RLE pain. RLE intractable pain--> no DVT, has strong arterial pulses and no evidence of arterial blockage or limb ischemia. I reviewed CT abd/pel over phone with control cabinet assembler Radiologist who definitely does not see a femoral hernia present. Seems to likely be MSK in nature but seems pain out of proportion to a simple groin injury. -pain control with Dilaudid with caution as she has a h/o nausea with opioids -Orthopedic Consultation appreciated for further evaluation to see what etiology of her pain could be--> CRPS? -Consider Pain Management Consult RUQ Abd pain, elevated LFTs, Cholelithiasis and possible acute cholecystitis--> CT abd/pel abnormal, with h/o cirrhosis on imaging but no documentation or mention from pt or AL records of a workup for her cirrhosis, no liver biopsy. INR normal, platelets normal, normal synthetic function at this point of liver. Not septic, no leukocytosis. AST and Alk phos elevated but this is chronic for years. I do not feel her GB issues have any relationship to her intractable RLE pain at this point. -check HIDA scan -consult Gen Surgery to see if is surgical candidate -continue IV Zosyn -follow LFTs, CBC UTI-abnormal UA and with right groin pain, could possibly be related to UTI? Does not seem likely and is probably abnormal UA from contamination but Zosyn for cholecystitis will cover for UTI -f/u Ur cx CAD s/p ULISSES 2008, aortic stenosis, mitral regurgitation, KIARA, LBBB, HTN-all stable -continue home meds: ASA, Plavix, Crestor, Imdur, metoprolol, losartan DMII, Diabetic gastroparesis- last HgbA1C here 10.1% in 01/2016, uncontrolled. Has been on increased insulin doses since then. No meds for gastroparesis but eats small amounts at a time -check HgbA1C -continue home Lantus 60 units qPM and SSI CKD Stage IV, anemia of CKD-roll skinner around baseline of 2.0, Hgb at baseline 10.8, macrocytic anemia -check B12, Folate -renally dose meds -avoid nephrotoxins -follow PRP GERD-stable -continue PPI H/o Breast CA-stable -continue Arimidex Depression-stable, no current issues H/o migraines and vertigo-no current issues Proph-heparin SQ, SCD to left leg Dispo- Full Code Level of Care Med/Surg Resuscitation Status FULL RESUSCITATION VTE Prophylaxis VTE Risk Assessment Done? Y/N: Yes Risk Level: Low Given or contraindicated: Unfractionated heparin SQ Social Service Consult Lives in [facility] Additional Copies To Johana Mims M.D.
[2016-09-29 23:35] VITALS: BP 174/68; PULSE 77; TEMP 36.5; O2SAT 93
[2016-09-29] MEDS: PIPERACILL/TAZOBAC IV 3.375 GM in DEXTROSE 5% 100ML 100 ML IV SCH (23:35)
[2016-09-29] MEDS: ALBUTEROL HFA 8 GM INHALER INH SCH (23:35)
[2016-09-29] MEDS: SODIUM CHLORIDE 0.45% 1000ML 1,000 ML IV SCH (23:35)
[2016-09-30] VITALS (9 sets, daily range): BP systolic 126–162; BP diastolic 55–79; PULSE 70–81; TEMP 36.5–37.2; O2SAT 93–95
[2016-09-30] MEDS ORDERED: NURSING VERBAL MED ORDER ONE ×4 (00:45→15:15)
[2016-09-30] MEDS: ALBUTEROL HFA 8 GM INHALER INH SCH ×4 (05:47→23:22)
[2016-09-30] MEDS: INSULIN ASPART 100 UNITS/ML 3 ML PEN SC SCH ×4 (05:56→20:50)
[2016-09-30 07:41] LABS: BASO % 0.7 %; BASO ABS # 0.05 K/uL (0-0.2); COMPLETE YES; EOS % 4.4 %; HEMATOCRIT 33.4 % (37-47); IG% 0.3 %; LYMPH % 35.6 %; LYMPH ABS # 2.58 K/uL (1.2-3.4); MEAN CELL VOLUME 98.2 fL (80-100); MEAN CORPUSCULAR HEMOGLOBIN 31.8 pg (25-34); MEAN CORPUSCULAR HGB CONC 32.3 g/dl (32-36); MEAN PLATELET VOLUME 9.8 fL (7.4-10.4); MONO % 11.3 %; NEUT % 47.7 %; PLATELET COUNT 137 K/uL (130-400); WHITE BLOOD COUNT 7.25 K/uL (4.8-10.8)
[2016-09-30 08:09] LABS: ESTIMATED AVERAGE GLUCOSE 131 mg/dl; HA1C FLAG Normal (Normal)
[2016-09-30 08:16] LABS: BUN/CREATININE RATIO 12.3 (10-20); CALCIUM 9.1 mg/dl (8.5-10.1); CREATININE 1.9 mg/dl (0.60-1.20); MAGNESIUM 2.1 mg/dl (1.8-2.4)
[2016-09-30] MEDS: PIPERACILL/TAZOBAC IV 3.375 GM in DEXTROSE 5% 100ML 100 ML IV SCH (08:17)
[2016-09-30] MEDS ORDERED: ERYTHROMYCIN 250 MG TABEC PO SCH (09:00)
[2016-09-30] MEDS: ERYTHROMYCIN PO SCH (09:00)
[2016-09-30] MEDS: FLUTICASONE PROPIONATE NA SPR 16 GM BTL SCH (09:21)
--- NOTE | 2016-09-30 11:55 | DIAGNOSTIC IMAGING REPORT ---
NUCLEAR MEDICINE HEPATOBILIARY SCAN CLINICAL HISTORY: Right upper quadrant pain. Evaluate for acute cholecystitis. COMPARISON: CT of the abdomen and pelvis September 29, 2016. TECHNIQUE: 5.2 mCi of technetium 99m Choletec IV was injected at 9:30 AM on September 30, 2016. Immediately following injection, imaging of the abdomen was carried out for 60 minutes in the anterior projection. FINDINGS: Hepatic uptake of radiotracer is prompt and homogeneous. Activity is first identified within the common bile duct and small bowel at 15 minutes. Gallbladder activity is first noted at 20 minutes. IMPRESSION: No evidence of acute cholecystitis. Electronically signed by: Marino Lemus M.D. 09/30/2016 11:54 AM Dictated Date/Time: 09/30/2016 11:50 AM
[2016-09-30] MEDS: PANTOprazole SOD 40 MG TAB PO SCH (12:15)
[2016-09-30] MEDS: DOCUSATE SODIUM/SENNA 50/8.6MG TAB PO SCH (12:17)
[2016-09-30] MEDS: ROSUVASTATIN CALCIUM 20 MG TAB PO SCH (12:18)
[2016-09-30] MEDS: METOPROLOL TARTRATE 25 MG TAB PO SCH ×2 (12:18→20:47)
[2016-09-30] MEDS: ASPIRIN 81 MG ECTAB PO SCH (12:18)
[2016-09-30] MEDS: CLOPIDOGREL BISULFATE 75 MG TAB PO SCH (12:18)
[2016-09-30] MEDS: CYANOCOBALAMIN 500 MCG TAB (VIT B-12) PO SCH (12:18)
[2016-09-30] MEDS: DOCUSATE SODIUM 100 MG CAP PO SCH ×2 (12:18→20:46)
[2016-09-30] MEDS: ISOSORBIDE MONONITRATE 60 MG TABCR PO SCH (12:18)
[2016-09-30] MEDS: MAGNESIUM OXIDE 400 MG TAB PO SCH (12:18)
[2016-09-30] MEDS: ANASTROZOLE 1 MG TAB PO SCH (12:20)
[2016-09-30] MEDS: HEPARIN SOD 5000 UNIT/0.5 ML CARP SQ SCH ×2 (12:25→21:51)
[2016-09-30] MEDS: SODIUM CHLORIDE 0.45% 1000ML 1,000 ML IV SCH (12:29)
[2016-09-30] MEDS: LOSARTAN POTASSIUM 50 MG TAB PO SCH (12:42)
--- NOTE | 2016-09-30 14:05 | Hospitalist Progress Note ---
Hospitalist Progress Note Date of Service Sep 30, 2016. (Kacy Tinoco ., PA-C) Subjective Pt evaluation today including: conversation w/ patient, physical exam, chart review, lab review, review of studies, conversation w/ student union consultant Voiding: no voiding problems Patient states she is feeling well. NPO due to HIDA scan today- no acute cholecystis- advance diet. Patient current has 0/10 pain, but states pain only occurs w/ movement. Pain is to complete RLE. Cannot give exact location of pain, just states "it is my entire RLE from hip to toes." Started ~7 days ago. Does NOT start from lumbar spine. No numbness/tingling. No numbness/tingling or pain in the R buttocks. No bowel/bladder incontinence. Denies any injuries/trauma. Denies any issues like this before. Denies weakness. Able to still ambulate w/ walker. Patient denies any fever, chills, sweats, lightheadedness, dizziness, vision changes, CP, palpitations, edema, SOB, wheezing, cough, abdominal pain, nausea, vomiting, diarrhea, urinary symptoms, melena, numbness/tingling, weakness, anxiety/depression, active bleeding, or new skin discoloration/changes. (Kacy Tinoco ., PA-C) Medications Current Inpatient Medications Medications (Trade) Dose Ordered Sig/Audra Route Start Time Stop Time Status Last Admin Dose Admin Acetaminophen (Tylenol Tab) 650 mg Q4H PRN PO 09/29/16 19:00 10/29/16 18:59 Ondansetron HCl (Zofran Inj) 4 mg Q6H PRN IV 09/29/16 19:00 10/29/16 18:59 Heparin Sodium (Porcine) (Heparin Sq 5000 Unit/0.5ml) 5,000 unit Q12H SQ 09/29/16 22:00 10/29/16 21:59 09/30/16 12:25 5,000 UNIT Glucose (Glucose 40% Gel) 15-30 GRAMS 15 GRAMS... UD PRN PO 09/29/16 19:00 10/29/16 18:59 Glucose (Glucose Chew Tab) 4-8 Tablets 4 Tabl... UD PRN PO 09/29/16 19:00 10/29/16 18:59 Dextrose (Dextrose 50% 50ML Syringe) 25-50ML OF 50% DW IV FOR... UD PRN IV 09/29/16 19:00 10/29/16 18:59 Glucagon (Glucagon Inj) 1 mg UD PRN SQ 09/29/16 19:00 10/29/16 18:59 Hydromorphone HCl (Dilaudid Inj) 0.5 mg Q4H PRN IV 09/29/16 19:30 10/13/16 19:29 09/30/16 03:05 0.5 MG Albuterol (Ventolin Hfa Inhaler) 2 puffs Q6 INH 09/30/16 00:00 10/30/16 00:00 09/30/16 12:20 2 PUFFS Anastrozole (Arimidex Tab) 1 mg DAILY PO 09/30/16 09:00 10/30/16 08:59 09/30/16 12:20 1 MG Aspirin (Ecotrin Tab) 81 mg DAILY PO 09/30/16 09:00 10/30/16 08:59 09/30/16 12:18 81 MG Clopidogrel Bisulfate (plAVix TAB) 75 mg DAILY PO 09/30/16 09:00 10/30/16 08:59 09/30/16 12:18 75 MG Docusate Sodium (coLACE CAP) 100 mg BID PO 09/29/16 21:00 10/29/16 20:59 09/30/16 12:18 100 MG Fluticasone Propionate (Flonase Nasal [place]) 2 sprays DAILY NA 09/30/16 09:00 10/30/16 08:59 09/30/16 09:21 2 SPRAYS Isosorbide Mononitrate (Imdur Ext Rel Tab) 60 mg DAILY PO 09/30/16 09:00 10/30/16 08:59 09/30/16 12:18 60 MG Losartan Potassium (coZAAR TAB) 100 mg DAILY PO 09/30/16 09:00 10/30/16 08:59 09/30/16 12:42 100 MG Magnesium Oxide (Mag-Ox Tab) 400 mg DAILY PO 09/30/16 09:00 10/30/16 08:59 09/30/16 12:18 400 MG Metoprolol Tartrate (Lopressor Tab) 25 mg BID PO 09/29/16 21:00 10/29/16 20:59 09/30/16 12:18 25 MG Nitroglycerin (Nitrostat Tab) 0.4 mg PRN UT 09/29/16 19:45 10/29/16 19:44 Rosuvastatin Calcium (Crestor Tab) 40 mg DAILY PO 09/30/16 09:00 10/30/16 08:59 09/30/16 12:18 40 MG Senna/Docusate Sodium (Senokot S Tab) 1 tab DAILY PO 09/30/16 09:00 10/30/16 08:59 09/30/16 12:17 1 TAB Cyanocobalamin (Vitamin B-12 Tab) 1,000 mcg DAILY PO 09/30/16 09:00 10/30/16 08:59 09/30/16 12:18 1,000 MCG Pantoprazole Sodium (Protonix Tab) 40 mg DAILY PO 09/30/16 09:00 10/30/16 08:59 09/30/16 12:15 40 MG Hydrocortisone Acetate (Anusol Hc Supp) 25 mg HS PRN ME 09/29/16 19:45 10/29/16 19:44 Piperacillin Sod/ Tazobactam Sod 3.375 gm/Dextrose 115 ml @ 28.75 mls/ hr Q8H IV 09/30/16 00:00 10/10/16 00:00 09/30/16 08:17 28.75 MLS/HR Piperacillin Sod/ Tazobactam Sod (Consult) 1 ea UD PRN N/A 09/29/16 21:30 10/29/16 21:29 Sodium Chloride 1,000 ml @ 75 mls/hr [id number] IV 09/29/16 23:00 10/29/16 22:59 09/30/16 12:29 75 MLS/HR Insulin Glargine (Lantus Solostar Pen) 20 units BID SC 09/30/16 09:00 10/29/16 20:59 Future hold Insulin Aspart (novoLOG ASPART) SLIDING SCALE If C... Q6 SC 09/30/16 06:00 10/30/16 05:59 Miscellaneous Information (Order Awaiting Action) 1 ea DAILY PO 09/30/16 09:00 10/30/16 08:59 (Kacy Tinoco, MARLENA) Objective Vital Signs Date Time Temp Pulse Resp B/P (MAP) Pulse Ox O2 Delivery O2 Flow Rate FiO2 09/30/16 12:14 72 162/71 (101) 09/30/16 08:10 Room Air 09/30/16 08:06 95 Room Air 09/30/16 07:43 36.5 72 14 126/72 (90) 95 Room Air 09/30/16 03:09 70 154/79 (104) 09/30/16 01:17 36.5 77 18 126/72 93 Room Air 09/30/16 00:00 160/73 (102) 09/29/16 23:45 Room Air 09/29/16 23:35 36.5 77 18 174/68 (103) 93 Room Air 09/29/16 20:29 36.8 80 18 154/79 Room Air 09/29/16 20:03 36.8 77 16 156/66 94 09/29/16 19:52 36.8 77 16 156/66 94 Room Air 09/29/16 19:25 78 09/29/16 19:06 80 16 09/29/16 19:01 153/65 09/29/16 18:36 79 20 94 09/29/16 18:31 169/62 09/29/16 18:06 78 16 95 09/29/16 18:01 151/54 09/29/16 17:36 80 8 95 09/29/16 17:32 155/55 09/29/16 17:06 81 14 96 09/29/16 17:01 165/58 09/29/16 17:00 79 12 96 09/29/16 16:46 152/59 09/29/16 16:00 79 16 97 1817 15:31 156/64 17 15:30 75 20 97 1817 15:25 74 1817 15:23 75 16 156/59 97 09/29/16 15:22 95 Room Air 09/29/16 15:21 156/59 (Kacy Tinoco PA-C) Physical Exam General Appearance: no apparent distress Eyes: normal inspection, PERRL ENT: hearing grossly normal Neck: supple Respiratory/Chest: lungs clear, no respiratory distress, no accessory muscle use Cardiovascular: regular rate, rhythm Abdomen: normal bowel sounds, soft, + tenderness (mild deep ttp of RUQ/ epigastric region ) Extremities: no pedal edema, no calf tenderness, + pertinent finding (cannot lift RLE from bed on command due to severe pain ) Neurologic/Psychiatric: alert, normal mood/affect, oriented x 3 Skin: normal color, warm/dry, no rash (Kacy Tinoco, MARLENA) Laboratory Results Last 24 Hours Test 09/29/16 14:06 09/29/16 15:16 09/29/16 20:42 09/30/16 05:54 White Blood Count 8.23 K/uL Red Blood Count 3.30 M/uL Hemoglobin 10.8 g/dL Hematocrit 32.6 % Mean Corpuscular Volume 98.8 fL Mean Corpuscular Hemoglobin 32.7 pg Mean Corpuscular Hemoglobin Concent 33.1 g/dl Platelet Count 136 K/uL Mean Platelet Volume 9.7 fL Neutrophils (%) (Auto) 52.9 % Lymphocytes (%) (Auto) 32.3 % Monocytes (%) (Auto) 10.4 % Eosinophils (%) (Auto) 3.6 % Basophils (%) (Auto) 0.7 % Neutrophils # (Auto) 4.34 K/uL Lymphocytes # (Auto) 2.66 K/uL Monocytes # (Auto) 0.86 K/uL Eosinophils # (Auto) 0.30 K/uL Basophils # (Auto) 0.06 K/uL RDW Standard Deviation 51.4 fL RDW Coefficient of Variation 14.3 % Immature Granulocyte % (Auto) 0.1 % Immature Granulocyte # (Auto) 0.01 K/uL Urine Color YELLOW Urine Appearance CLOUDY Urine pH 7.5 Urine Specific [place] 1.012 Urine Protein TRACE Urine Glucose (UA) NEG Urine Ketones NEG Urine Occult Blood 1+ Urine Nitrite NEG Urine Bilirubin NEG Urine Urobilinogen NEG Urine Leukocyte Esterase LARGE Urine WBC (Auto) >30 /hpf Urine RBC (Auto) 0-4 /hpf Urine Hyaline Casts (Auto) 1-5 /lpf Urine Epithelial Cells (Auto) 5-10 /lpf Urine Bacteria (Auto) NEG Sodium Level 137 mmol/L Potassium Level 4.7 mmol/L Chloride Level 105 mmol/L Carbon Dioxide Level 24 mmol/L Anion Gap 8.0 mmol/L Blood Urea Nitrogen 23 mg/dl Creatinine 2.00 mg/dl Est Creatinine Clear Calc Drug Dose 22.6 ml/min Estimated GFR () 27.2 Estimated GFR (Non- 23.5 BUN/Creatinine Ratio 11.7 Random Glucose 209 mg/dl Calcium Level 9.1 mg/dl Total Bilirubin 0.4 mg/dl Aspartate Amino Transf (AST/SGOT) 42 U/L Alanine Aminotransferase (ALT/SGPT) 27 U/L Alkaline Phosphatase 163 U/L Total Protein 7.6 gm/dl Albumin 2.7 gm/dl Globulin 4.9 gm/dl Albumin/Globulin Ratio 0.6 Prothrombin Time 11.4 SECONDS Prothromb Time International Ratio 1.1 Activated Partial Thromboplast Time 28.2 SECONDS Partial Thromboplastin Ratio 1.1 Bedside Glucose 114 mg/dl 89 mg/dl Test 09/30/16 07:11 White Blood Count 7.25 K/uL Red Blood Count 3.40 M/uL Hemoglobin 10.8 g/dL Hematocrit 33.4 % Mean Corpuscular Volume 98.2 fL Mean Corpuscular Hemoglobin 31.8 pg Mean Corpuscular Hemoglobin Concent 32.3 g/dl Platelet Count 137 K/uL Mean Platelet Volume 9.8 fL Neutrophils (%) (Auto) 47.7 % Lymphocytes (%) (Auto) 35.6 % Monocytes (%) (Auto) 11.3 % Eosinophils (%) (Auto) 4.4 % Basophils (%) (Auto) 0.7 % Neutrophils # (Auto) 3.46 K/uL Lymphocytes # (Auto) 2.58 K/uL Monocytes # (Auto) 0.82 K/uL Eosinophils # (Auto) 0.32 K/uL Basophils # (Auto) 0.05 K/uL RDW Standard Deviation 50.9 fL RDW Coefficient of Variation 14.2 % Immature Granulocyte % (Auto) 0.3 % Immature Granulocyte # (Auto) 0.02 K/uL Sodium Level 139 mmol/L Potassium Level 4.0 mmol/L Chloride Level 107 mmol/L Carbon Dioxide Level 27 mmol/L Anion Gap 5.0 mmol/L Blood Urea Nitrogen 23 mg/dl Creatinine 1.90 mg/dl Est Creatinine Clear Calc Drug Dose 23.8 ml/min Estimated GFR () 29.0 Estimated GFR (Non- 25.0 BUN/Creatinine Ratio 12.3 Random Glucose 76 mg/dl Estimated Average Glucose 131 mg/dl Hemoglobin A1c 6.2 % Calcium Level 9.1 mg/dl Magnesium Level 2.1 mg/dl Total Bilirubin 0.6 mg/dl Direct Bilirubin 0.1 mg/dl Aspartate Amino Transf (AST/SGOT) 33 U/L Alanine Aminotransferase (ALT/SGPT) 25 U/L Alkaline Phosphatase 148 U/L Total Protein 7.5 gm/dl Albumin 2.6 gm/dl Vitamin B12 Level > 2000 pg/mL Folate 22.88 ng/mL (Kacy Tinoco ., CAROLINAC) Assessment and Plan Pt is a 76 yo female with a h/o CAD s/p ULISSES 2008, aortic stenosis, mitral regurgitation, KIARA, LBBB, HTN, DMII, CKD Stage IV, cirrhosis of the liver, anemia of CKD, gastroparesis, GERD, Breast CA, depression, migraines, and vertigo, who presents to the ER with 6 days of progressively worsening right lower extremity pain. She normally ambulates with a walker and has assistance with most tasks at her AL facility and cannot recall an injury and has not had any falls. Her pain came on last week in the right groin and spreads down the anterior entire right lower extremity. Her daughter had not seen her in a few days and when she saw her yesterday, she noted the leg to be swollen. The pt states that the pain is severe all the way into her toes. She has never had anything like this before. Doppler of the RLE was negative for DVT. The pain is worse with any movement or palpation of the right leg but mostly with hip flexion. She is still able to ambulate and bear weight with her walker but has a lot of pain. In the ER, she had multiple xrays taken and because of some elevated LFTs and the right inguinal pain, she had a CT abd/pel performed which noted cholelithiasis and some mild pericholecystic fluid. Pt denies any recent abdominal pain, but was tender on palpation in the RUQ. She has been afebrile, did not have a leukocytosis. SHe has occasional nausea and vomiting after eating which is a common problem for her since her diagnosis of gastroparesis. ER PA called me to assess for admission for possible acute cholecystitis as well as her intractable RLE pain. RLE intractable pain: - Venous Doppler US- no evidence of DVT - Tibia/fibula and femur x-ray- no acute findings - Pain control w/ Dilaudid and Tylenol PRN - PT/OT evaluations - Does not appear to be septic joint due to diffuse RLE pain- IV Zosyn x2 doses , check ESR and CRP - Consulted orthopedics, appreciate recommendations RUQ abdominal pain, elevated LFTs, cholelithiasis: - Admitted to med/surg - Started on IV Zosyn at admission on 09/29 -- No evidence of acute camilla on HIDA, no fever/chills, no WBC- will discontinue on 09/30- received 2 doses - Elevated LFTS- trending downwards - Consulted general surgery, appreciate recommendations -- HIDA scan- no evidence of acute cholecystitis ?UTI w/ abnormal UA and right groin pain: - UCx recommending repeat- repeat UCx pending- received IV Zosyn x2 doses CAD s/p ULISSES 2009, aortic stenosis, mitral regurgitation, KIARA, LBBB, HTN- STABLE : - Continue ASA 81 mg daily, Plavix 75 mg daily, Crestor 40 mg HS, Imdur 60 mg daily , Metoprolol 25 mg BID, Losartan 100 mg daily - Checked mag level- WNL- continue Mag-Ox supplement 400 mg daily T2DM, diabetic gastroparesis- HgbA1C= 6.2%%- CONTROLLED: - Lantus 20 BID while NPO- continue to monitor BSG since starting diet- resume Lantus 60 QAM once tolerated full diet - BSG ACHS and SSI CKD, stage IV, baseline Cr. 2.0- STABLE: Follow PRP Anemia of CKD, baseline hgb 10.8: B12/folate reviewed- WNL- continue B12 supplement GERD: Omeprazole changed to Protonix while inpatient h/o breast CA: Continue Arimidex 1 mg daily h/o migraines and vertigo- STABLE Depression- STABLE GI Prophylaxis: Protonix DVT Prophylaxis: Heparin Code Status: LEVEL I, FULL Dispo: Discharge uncertain at this time (Kacy Tinoco ., PABelC) Attending Attestation: Pt seen/examined, chart reviewed, and care plan d/w МАРИЯ Tinoco. I agree w/ the hardy components of her documentation. Pt continues with right leg pain. When asked to really pinpoint the pain she points to the outer lateral aspect of the hip. If laying still there is no pain. With movement there is pain. Denies RUQ pain at this time. Tolerated full liquids after her HIDA w/o difficulty. VSS no fever gen - nad abd - soft, NT, ND, BS+, no HSM, no peritoneal signs ext - right leg - very tender to palpation over expected location of trochanteric bursa; she has tenderness along the entire course of the right IT band with passive flexion of the right hip she has NO pain or resistance to ROM with extension again no pain with forced adduction and internal rotation she has exquisite pain over the bursal region b/l knees with OA changes leg-length discrepency is present, about 2cm left foot with pes planus; right foot with small amount of arch left HIDA scan - negative all x-rays reviewed A/P: 1. RUQ pain - resolved. Although gallstones seen on CT, HIDA is negative. LFTs largely normal. CT mentions cirrhotic appearing liver - CISNEROS? Perhaps the cholecystic fluid is from the cirrhosis. 2. right hip pain - exam most c/w trochanteric bursitis with IT band tendonitis ; cannot r/o element of OA of right hip as well. No signs of septic hip or fracture. Agree with bursal steroid injection by ortho; appreciate their assistance. Updated daughter by phone evening of 09/30/16. PT in the am to ensure she can transition to her place of residence. Reassess response to injection tomorrow. ICE in meantime. Juan Frey MD (Juan Frey MD)
[2016-09-30] MEDS ORDERED: METHYLPREDNISOLONE ACETATE 80 MG/ML VIAL IA ONE (15:30)
[2016-09-30] MEDS ORDERED: BUPIVACAINE 0.5 % 5 MG/1 ML PF 10ML VIAL IA ONE (15:30)
[2016-09-30] MEDS ORDERED: ETHYL CHLORIDE AER SPR 100 ML CAN EXT ONE (15:30)
--- NOTE | 2016-09-30 16:31 | Medical Consult ---
Consultation Note Date of Service Sep 30, 2016. Consultation Note This consultation on Yuki Warner. She is a 76-year-old female seen at the request of Dr. Frey. The patient was admitted on 09/29/2016 with a chief complaint of right hip and groin pain. Prior to admission she had 6 days a progressively worsening right lower extremity and groin pain. She would typically plate with a walker and has assistance with most of her tasks in her assisted living facility. She denies any injuries. She denied any excessive activity, lifting or transfers. When seen by her daughter at the [facility] living facility, the daughter felt that her right lower extremity was somehow swollen. She was then transferred to [facility] for further care and management. She had a Doppler scan in the right lower extremity which was negative for any type of deep venous thrombosis. Pain is worse with any activity. She is able to ambulate with significant discomfort. She has had a comprehensive workup for her right lower extremity, right upper quadrant and right lower quadrant. Though she has multiple medical comorbidities, there is been no decisive diagnosis which could be ascribed to her right groin and lower extremity pain. Past history: Aortic stenosis, mitral regurgitation, cirrhosis of the liver, depression, anemia of chronic kidney disease stage 4, history of breast cancer, coronary artery disease 2006, carotid stenosis, chronic kidney disease stage IV , diabetes mellitus type 2, diabetic gastroparesis, GERD, hypertension, left bundle branch block, migraine headaches, vertigo. Past surgical history: Right breast lumpectomy, shoulder surgery, history of tubal ligation, appendectomy, knee arthroscopy right, umbilical hernia repair, colonoscopy, EGD Allergies: TARAH inhibitor's, guaifenesin, metformin, phenylephrine. Social history: Denies tobacco, alcohol and drug use. . Lives in assisted living. Retired Physical exam: Is a pleasant 76-year-old female who lies supine in her hospital room bed. She is alert and oriented 3. Recent clear fluent. Affect is appropriate. No acute distress. Examination of the right lower extremity demonstrates significant tenderness to palpation of the right trochanteric bursa. She also has moderate discomfort in the right inguinal region over the right hip joint. She has pain and discomfort with active and passive range of motion of the right hip and pelvis related to the right groin and trochanteric bursal region. She has a positive Fabere test on the right. Negative heel strike test on the right. Negative logroll test on the right. She has tenderness to palpation over the right knee medial compartment. Positive Genu valgum on the right. Crepitation with active and passive range of motion of the right knee. Bilateral pes planovalgus. Dorsalis pedis and posterior tibial pulses are 2 out of 4 bilateral lower extremities. Cap refill is brisk at 2 seconds bilateral lower extremities. Feet are pink and warm. Radiographs and CT scan: Mild to moderate degenerative joint disease right hip with subchondral sclerosis and loss of joint space. Trace marginal osteophytes are noted. No subchondral cysts. Right knee radiographs demonstrate near complete loss of the medial joint space with subchondral sclerosis, genu varum, small marginal osteophytes. No fractures. No subchondral cysts. Impression: Right acute trochanteric bursitis. Right hip moderate degenerative joint disease with acute flare of osteoarthritis. 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 Recommendations: After discussion with the patient and after obtaining verbal consent from the patient, Right hip trochanteric bursa injection with 2 mL Depo- Medrol and 8 mL of 0.5% bupivacaine was injected under sterile technique. A sterile Band-Aid was applied to the site. Ice to the affected area 20 minutes 3 times per day for the next 3 days. Patient tolerated the injection well. Ambulate as tolerated with assistance and walker. We will reassess for effect. Thank you for the opportunity to participate in the care of this patient. Johnnie Patel D.O.
[2016-09-30] MEDS: INSULIN GLARGINE SOLOSTAR 100 UNITS/ML 3 ML PEN SC SCH (20:51)
[2016-10-01] MEDS: ALBUTEROL HFA 8 GM INHALER INH SCH ×2 (05:50→12:36)
[2016-10-01 07:35] VITALS: BP 140/80; PULSE 80; TEMP 36.8; O2SAT 95
[2016-10-01 07:37] VITALS: O2SAT 95
[2016-10-01] MEDS: DOCUSATE SODIUM 100 MG CAP PO SCH (08:33)
[2016-10-01] MEDS: FLUTICASONE PROPIONATE NA SPR 16 GM BTL SCH (08:35)
[2016-10-01] MEDS: LOSARTAN POTASSIUM 50 MG TAB PO SCH (08:37)
[2016-10-01] MEDS: ASPIRIN 81 MG ECTAB PO SCH (08:38)
[2016-10-01] MEDS: ROSUVASTATIN CALCIUM 20 MG TAB PO SCH (08:38)
[2016-10-01] MEDS: ISOSORBIDE MONONITRATE 60 MG TABCR PO SCH (08:39)
[2016-10-01] MEDS: METOPROLOL TARTRATE 25 MG TAB PO SCH (08:40)
[2016-10-01] MEDS: MAGNESIUM OXIDE 400 MG TAB PO SCH (08:41)
[2016-10-01] MEDS: ERYTHROMYCIN PO SCH (08:42)
[2016-10-01] MEDS: CLOPIDOGREL BISULFATE 75 MG TAB PO SCH (08:42)
[2016-10-01] MEDS: PANTOprazole SOD 40 MG TAB PO SCH (08:43)
[2016-10-01] MEDS: DOCUSATE SODIUM/SENNA 50/8.6MG TAB PO SCH (08:43)
[2016-10-01] MEDS: CYANOCOBALAMIN 500 MCG TAB (VIT B-12) PO SCH (08:44)
[2016-10-01] MEDS: INSULIN ASPART 100 UNITS/ML 3 ML PEN SC SCH ×2 (09:46→12:50)
[2016-10-01] MEDS: INSULIN GLARGINE SOLOSTAR 100 UNITS/ML 3 ML PEN SC SCH (09:47)
[2016-10-01] MEDS: ANASTROZOLE 1 MG TAB PO SCH (09:48)
[2016-10-01] MEDS: HEPARIN SOD 5000 UNIT/0.5 ML CARP SQ SCH (09:48)
--- NOTE | 2016-10-01 10:03 | Surgery Progress Note ---
Surgery Progress Note Date of Service Oct 01, 2016. Subjective + feeling well F/U cholelithiasis HIDa scan done which revealing no acute cholecystitis, pt is doing better, pt denies abdominal pain, no nausea, no vomiting, no fever, Objective Vital Signs: Date Time Temp Pulse Resp B/P (MAP) Pulse Ox O2 Delivery O2 Flow Rate FiO2 10/01/16 07:37 95 Room Air 10/01/16 07:35 36.8 80 11 140/80 (100) 95 Room Air 09/30/16 23:45 Room Air 09/30/16 22:55 37.2 81 18 153/70 (97) 95 Room Air 09/30/16 15:45 93 Room Air 09/30/16 15:32 36.9 78 16 131/55 (80) 93 Room Air 09/30/16 12:14 72 162/71 (101) General Appearance: WD/WN, no apparent distress Head: normocephalic Neck: supple, no JVD Respiratory/Chest: chest non-tender, lungs clear Cardiovascular: regular rate, rhythm, no edema, no JVD Abdomen: normal bowel sounds, non tender, non distended, soft Extremities: normal range of motion, non-tender, normal inspection Laboratory Results: Results Past 24 Hours Test 09/30/16 12:05 09/30/16 17:08 09/30/16 20:34 10/01/16 06:53 Range/Units Bedside Glucose 87 120 214 70-90 mg/dl Erythrocyte Sedimentation Rate 71 0-21 mm/hr C-Reactive Protein 1.43 0-0.29 mg/dl Microbiology Results 09/30/16 Urine Culture, Received Pending Assessment & Plan F/U cholelithiasis, HIDA scan negative sign off today, please call me if need me I will F/U pt 1 week in my clinic, , may schedule pt to do lap camilla for outpt pt understood, she agrees with the plan, I answered all questions, Thanks.
[2016-10-01 10:16] VITALS: BP 167/76; PULSE 90; O2SAT 95
--- NOTE | 2016-10-01 13:26 | Orthopedic Progress Note ---
Orthopedic Progress Note Date of Service Oct 01, 2016. Subjective Additional Notes: Follow up for trochanteric bursa injection. Pt sitting in chair upon arrival. She states that the hip is feeling much better today. Not completely better but getting there. Happy with the results at this time. Objective Less tenderness over the troch bursa Date Time Temp Pulse Resp B/P (MAP) Pulse Ox O2 Delivery O2 Flow Rate FiO2 10/01/16 10:16 90 95 10/01/16 07:40 Room Air 10/01/16 07:37 95 Room Air 10/01/16 07:35 36.8 80 11 140/80 (100) 95 Room Air 09/30/16 23:45 Room Air 09/30/16 22:55 37.2 81 18 153/70 (97) 95 Room Air 09/30/16 15:45 93 Room Air 09/30/16 15:32 36.9 78 16 131/55 (80) 93 Room Air Assessment & Plan Assessment: Right Trochanteric Bursitis Plan: Ambulation as tolerated Heat and or ice to right bursa area Follow up with Dr Patel in the office as needed. Ortho will sign off for now
--- NOTE | 2016-10-01 13:47 | Discharge Instructions ---
Discharge Instructions Date of Service Oct 01, 2016. Admission Reason for Admission: Acute Cholecystitis, Severe Right Groin Pain Discharge Discharge Diagnosis / Problem: Trochanteric bursitis; cholelithiasis Discharge Goals Goal(s): Decrease discomfort, Improve function, Increase independence, Learn about illness, Diagnostic testing, Therapeutic intervention, Prevent Disease Progression Activity Recommendations Activity Limitations: resume your previous activity . Instructions / Follow-Up Instructions / Follow-Up Right acute trochanteric bursitis/Right hip moderate degenerative joint disease with acute flare of osteoarthritis- Dr. Patel did an injection into the trochanteric bursa to treat the bursitis, which relieved a significant amount of the pain. Continue to apple ice to the affected area for 20 minutes, three times a day for the next 3 days (last day 10/03). Continue to ambulate with your walker as tolerated. Additionally, you may apply heat three times a day for 20 minutes at a time. You may take Tylenol as needed for the pain (do NOT exceed more than 4g of Tylenol in a 24 hour period). If over the next few days, the pain does not continue to improve and worsens, please contact Dr. Patel's office to schedule a follow-up. Cholelithiasis (stones in the gallbladder)- Dr. Ramirez would like to follow-up with you outpatient to discuss the option of removing the gallbladder. Resume all regular home medications as prescribed. FOLLOW-UPS: Please follow-up with your PCP within 5-7 days Please follow-up with General Surgery, Dr. Ramirez in 1 week. A referral has been sent- if you do not hear of an appointment in the next 1-2 days, please call the office at # [phone] You may follow-up with Orthopedics, Dr. Patel as needed for right lower extremity/hip pain. Office # [phone] Please follow-up/keep all of your subspecialty appointments Current Hospital Diet Patient's current hospital diet: Diabetes Type 2 Diet Discharge Diet Recommended Diet: Diabetes Type 2 Diet Procedures Procedures Performed: Tibia/fibula x-ray Femur x-ray Abdominal CT Lower extremity US HIDA scan Pending Studies Studies pending at discharge: no Laboratory Results Last 24 Hours Test 09/30/16 17:08 09/30/16 20:34 10/01/16 06:53 10/01/16 08:11 Bedside Glucose 120 mg/dl 214 mg/dl 115 mg/dl Erythrocyte Sedimentation Rate 71 mm/hr C-Reactive Protein 1.43 mg/dl Test 10/01/16 11:43 Bedside Glucose 183 mg/dl Hemoglobin A1c Test 09/30/16 07:11 Range/Units Estimated Average Glucose 131 mg/dl Hemoglobin A1c 6.2 H 4.5-5.6 % Medical Emergencies . Who to Call and When: Medical Emergencies: If at any time you feel your situation is an emergency, please call 911 immediately. . Non-Emergent Contact Non-Emergency issues call your: Primary Care Provider . . "Provider Documentation" section prepared by Kacy Tinoco. . VTE Core Measure Inpt VTE Proph given/why not?: Unfractionated heparin SQ
[2016-10-01 13:56] VITALS: BP 158/75; PULSE 69
--- NOTE | 2016-10-01 13:59 | Discharge Summary ---
Discharge Summary Date of Service Oct 01, 2016. (Kacy Tinoco, MARLENA) Discharge Summary Admission Date: Sep 29, 2016 at 19:23 Discharge Date: Oct 01, 2016 Discharge Disposition: Home Principal Diagnosis: Trochanteric bursitis Problems/Secondary Diagnoses: RLE intractable pain RUQ abdominal pain, elevated LFTs cholelithiasis: ?UTI w/ abnormal UA and right groin pain CAD s/p ULISSES 2009, aortic stenosis, mitral regurgitation, KIARA, LBBB HTN T2DM diabetic gastroparesis CKD, stage IV, baseline Cr. 2.0- STABLE: Follow PRP Anemia of CKD GERD h/o breast CA h/o migraines and vertigo Immunizations: Have You Had Influenza Vaccine: Yes Influenza Vaccine Date: Dec 03, 2015 History of Tetanus Vaccine?: Yes Tetanus Immunization Date: Nov 15, 2008 History of Pneumococcal: Yes Pneumococcal Date: May 10, 2015 Procedures: RIGHT TIBIA/FIBULA 2 VIEWS ROUTINE HISTORY: 76 years Female Right leg pain from groin to ankle COMPARISON: None available. TECHNIQUE: Frontal and lateral views of the right tibia and fibula. FINDINGS: The bones are mildly demineralized. There is moderate medial and patellofemoral compartment osteoarthritis with mild to moderate lateral compartment disease. There appears to be a small moderate joint effusion about the knee. No acute fracture or dislocation. There is spurring about the calcaneus. Vascular calcifications are seen. IMPRESSION: 1. Degenerative changes as above without acute fracture or dislocation. 2. Moderate knee joint effusion. 3. Peripheral vascular disease. The above report was generated using voice recognition software. It may contain grammatical, syntax or spelling errors. Electronically signed by: David Hoffman M.D. 09/29/2016 2:38 PM Dictated Date/Time: 09/29/2016 2:36 PM The status of this report is Signed. Draft = Not yet reviewed or approved by Radiologist. Signed = Reviewed and approved by Radiologist. RIGHT VENOUS DOPP LOWER EXT UNILAT CLINICAL HISTORY: Right leg pain and edema Right pain. Edema. TECHNIQUE: Venous Doppler COMPARISON STUDY: None FINDINGS: Normal study IMPRESSION: Normal study The above report was generated using voice recognition software. It may contain grammatical, syntax or spelling errors. Electronically signed by: Jose Wood M.D. 09/29/2016 3:12 PM Dictated Date/Time: 09/29/2016 3:12 PM The status of this report is Signed. Draft = Not yet reviewed or approved by Radiologist. Signed = Reviewed and approved by Radiologist. RIGHT FEMUR 2 VIEWS ROUTINE CLINICAL HISTORY: 76 years-old Female presenting with Right leg pain from groin to ankle. TECHNIQUE: Frontal and lateral views of the right femur were obtained. COMPARISON: None. FINDINGS: Right hip joint congruent. Joint congruent. No significant degenerative change of the hip joint, however, apparent medial joint space loss at the right hip. No acute fracture. IMPRESSION: 1. No acute osseous injury of the right femur. Electronically signed by: Guevara Cruz M.D. 09/29/2016 2:36 PM Dictated Date/Time: 09/29/2016 2:35 PM The status of this report is Signed. Draft = Not yet reviewed or approved by Radiologist. Signed = Reviewed and approved by Radiologist. CT SCAN OF THE ABDOMEN AND PELVIS WITHOUT CONTRAST CLINICAL HISTORY: Right inguinal pain and periumbilical pain COMPARISON STUDY: 04/19/2007 TECHNIQUE: CT scan of the abdomen and pelvis was performed from the lung bases to the proximal femurs. Images are reviewed in the axial, sagittal, and coronal planes. IV contrast was not administered for this examination. CT DOSE: 851.15 mGycm FINDINGS: Lower chest: There are small bilateral pleural effusions. There is mild septal edema. There is bibasal atelectasis. The heart is mildly enlarged. There is a small hiatal hernia. Liver: The liver capsule is slightly serrated. This may indicate early cirrhosis. No focal masses are visualized in this noncontrast study. Gallbladder: Cholelithiasis. There is mild pericholecystic fluid. The gallbladder is not significantly distended. Spleen: The spleen is top normal in size measuring 11.7 cm. Pancreas: Unremarkable. Adrenal glands: Unremarkable. Kidneys: There is a 1 cm right renal calculus. There is a 12 mm exophytic left renal mass likely representing a cyst. There is mild prominence of the right renal collecting system and proximal ureter. No ureteral calculi are visualized. Bowel: Evaluation the bowel is limited due to the lack of intravenous and oral contrast. There is colonic diverticulosis. No acute peridiverticular inflammatory changes are visualized. There is a suture line at the cecal tip, possibly secondary to a prior appendectomy. The appendix is not visualized. There is evidence of a mesh repair of a ventral hernia. There are no transition zones indicate bowel obstruction. There is no free air. There is mild rectosigmoid wall thickening versus a nondistended segment. Peritoneum: There is no intraperitoneal free air or abdominal ascites. Vasculature: The abdominal aorta is normal in course and caliber. Adenopathy: None. Pelvic viscera: There is mild distention of the bladder Skeletal structures: No destructive osseous lesions are seen. IMPRESSION: 1. No evidence of bowel obstruction. No evidence of free air 2. Cholelithiasis. Mild pericholecystic fluid. No evidence of gallbladder distention 3. Cirrhotic liver morphology 4. Bilateral pleural effusions 5. Right-sided nephrolithiasis. Minimal fullness the right renal collecting system. No ureteral or bladder calculi identified 6. Mild bladder distention 7. Diverticulosis. No evidence of acute diverticulitis 8. Rectosigmoid wall thickening versus a nondistended segment Electronically signed by: Vishnu Ji M.D. 09/29/2016 4:26 PM Dictated Date/Time: 09/29/2016 4:16 PM The status of this report is Signed. Draft = Not yet reviewed or approved by Radiologist. Signed = Reviewed and approved by Radiologist. NUCLEAR MEDICINE HEPATOBILIARY SCAN CLINICAL HISTORY: Right upper quadrant pain. Evaluate for acute cholecystitis. COMPARISON: CT of the abdomen and pelvis September 29, 2016. TECHNIQUE: 5.2 mCi of technetium 99m Choletec IV was injected at 9:30 AM on September 30, 2016. Immediately following injection, imaging of the abdomen was carried out for 60 minutes in the anterior projection. FINDINGS: Hepatic uptake of radiotracer is prompt and homogeneous. Activity is first identified within the common bile duct and small bowel at 15 minutes. Gallbladder activity is first noted at 20 minutes. IMPRESSION: No evidence of acute cholecystitis. Electronically signed by: Marino Lemus M.D. 09/30/2016 11:54 AM Dictated Date/Time: 09/30/2016 11:50 AM The status of this report is Signed. Draft = Not yet reviewed or approved by Radiologist. Signed = Reviewed and approved by Radiologist. Right hip trochanteric bursa injection with 2 mL Depo-Medrol and 8 mL of 0.5% bupivacaine was injected under sterile technique. A sterile Band-Aid was applied to the site. Ice to the affected area 20 minutes 3 times per day for the next 3 days. Patient tolerated the injection well. Ambulate as tolerated with assistance and walker. We will reassess for effect. Consultations: General surgery Orthopedics (Kacy Tinoco, CAROLINAC) Medication Reconciliation Continued Medications: Albuterol Hfa (Ventolin Hfa) 200 Puffs/23935 Mcg Aers 2-4 PUFFS INH Q6H, #1 INHALER Anastrozole (Arimidex) 1 Mg Tab 1 MG PO DAILY, TAB Aspirin Enteric Coated (Ecotrin Or Generic) 81 Mg Tab 81 MG PO DAILY, 0 Refills Clopidogrel (Plavix) 75 Mg Tab 75 MG PO DAILY, 0 Refills Cyanocobalamin (Vitamin B12) 1,000 Mcg Tab 1000 MCG PO DAILY Dextrose (Diabetic Use) (Insta-Glucose) 77.4 % Gel Docusate Sodium (Colace) 100 Mg Cap 100 MG PO BID Erythromycin Delay Rel (Marek-Tab Delay Rel) 250 Mg Tabec 250 MG PO DAILY, TAB Fluticasone Propionate (Nasal) (Flonase Allergy Relief) 50 Mcg/Act Spr 2 SPRAY NA DAILY Insulin Aspart (Novolog) 100 Units/Ml Inj 6 UNITS SQ QPM Insulin Aspart (Novolog) 100 Units/Ml Inj 10 UNITS SQ DAILYBL Insulin Aspart (Novolog) 100 Units/Ml Inj 4 UNITS SQ DAILYBB Insulin Glargine (Lantus) 100 Unit/Ml Inj 60 UNITS SC QPM, VIAL Isosorbide Mononitrate (Isosorbide Mononitrate ER) 60 Mg Tabcr 60 MG PO DAILY Losartan Potassium (Cozaar) 100 Mg Tab 100 MG PO DAILY, TAB Magnesium Oxide (Mag-Ox) 400 Mg Tab 400 MG PO DAILY, TAB Metoprolol Tartrate (Lopressor) 25 Mg Tab 25 MG PO BID Metronidazole Hcl (Metronidazole) 135 Appln/45 Gm Cr Mometasone Furoate-Formoterol (Dulera 100/5 Mcg) 1 Aer Aer 1 AER INH PRN for Shortness of Breath, INHALER Nitroglycerin (Nitrostat) 0.4 Mg Sub 0.4 MG UT PRN Omeprazole (Prilosec) 20 Mg Capcr 20 MG PO DAILY, CAP take 1 hour before first meal of day Pramoxine Hcl-Zinc Oxide (Tronolane) 1 Cre Cre Rosuvastatin Calcium (Crestor) 40 Mg Tab 40 MG PO DAILY, TAB Senna/Docusate Sod (Senokot S) 1 Tab Tab 1 TAB PO DAILY, TAB Referrals At Discharge Follow up Referrals: Family Practice Referral - Within 1-2 Weeks with Johana Mims M.D. Surgery Referral - Within 1 Week with Valery Ramirez MD Discharge Exam RLE pain is 4/10 today from 12/22 yesterday. Review of Systems: Constitutional: No fever, No chills, No sweats, No weakness, No fatigue Eyes: + worsening of vision Respiratory: No cough, No shortness of breath, No hemoptysis Cardiovascular: No chest pain, No edema, No palpitations Abdomen: No pain, No nausea, No vomiting, No diarrhea, No constipation Musculoskeletal: + joint pain, + muscle pain, No swelling, No calf pain Genitourinary - Female: No dysuria, No hematuria Neurologic: No weakness, No numbness/tingling Psychiatric: No depression symptoms, No anxiety Hematologic / Lymphatic: No abnormal bleeding/bruising Integumentary: No rash, No itch, No new/changing skin lesions Physical Exam: General Appearance: no apparent distress Eyes: normal inspection, PERRL ENT: hearing grossly normal Neck: supple Respiratory/Chest: lungs clear, no respiratory distress, no accessory muscle use Cardiovascular: regular rate, rhythm Abdomen / GI: normal bowel sounds, non tender, soft Extremities: no calf tenderness, no pedal edema Neurologic/Psychiatric: alert, normal mood/affect, oriented x 3 Skin: normal color, warm/dry, no rash (Kacy Tinoco, PA-C) Hospital Course Admission H&P: Pt is a 76 yo female with a h/o CAD s/p ULISSES 2008, aortic stenosis , mitral regurgitation, KIARA, LBBB, HTN, DMII, CKD Stage IV, cirrhosis of the liver, anemia of CKD, gastroparesis, GERD, Breast CA, depression, migraines, and vertigo, who presents to the ER with 6 days of progressively worsening right lower extremity pain. She normally ambulates with a walker and has assistance with most tasks at her AL facility and cannot recall an injury and has not had any falls. Her pain came on last week in the right groin and spreads down the anterior entire right lower extremity. Her daughter had not seen her in a few days and when she saw her yesterday, she noted the leg to be swollen. The pt states that the pain is severe all the way into her toes. She has never had anything like this before. Doppler of the RLE was negative for DVT. The pain is worse with any movement or palpation of the right leg but mostly with hip flexion. She is still able to ambulate and bear weight with her walker but has a lot of pain. In the ER, she had multiple xrays taken and because of some elevated LFTs and the right inguinal pain, she had a CT abd/pel performed which noted cholelithiasis and some mild pericholecystic fluid. Pt denies any recent abdominal pain, but was tender on palpation in the RUQ. She has been afebrile, did not have a leukocytosis. SHe has occasional nausea and vomiting after eating which is a common problem for her since her diagnosis of gastroparesis. ER PA called me to assess for admission for possible acute cholecystitis as well as her intractable RLE pain. Physical Exam Vital Signs Date Time Temp Pulse Resp B/P (MAP) Pulse Ox O2 Delivery O2 Flow Rate FiO2 09/29/16 19:25 78 09/29/16 19:06 80 16 09/29/16 19:01 153/65 09/29/16 18:36 79 20 94 09/29/16 18:31 169/62 09/29/16 18:06 78 16 95 09/29/16 18:01 151/54 09/29/16 17:36 80 8 95 09/29/16 17:32 155/55 09/29/16 17:06 81 14 96 09/29/16 17:01 165/58 09/29/16 17:00 79 12 96 09/29/16 16:46 152/59 09/29/16 16:00 79 16 97 09/29/16 15:31 156/64 09/29/16 15:30 75 20 97 09/29/16 15:25 74 09/29/16 15:23 75 16 156/59 97 09/29/16 15:22 95 Room Air 09/29/16 15:21 156/59 09/29/16 13:22 36.5 74 18 147/63 97 Room Air General Appearance: WD/WN, + mild distress (with any movement or palpation of RLE), + obese Head: normocephalic, atraumatic Eyes: normal inspection, PERRL, sclerae normal ENT: hearing grossly normal, pharynx normal Neck: supple, trachea midline Respiratory/Chest: lungs clear, normal breath sounds, no respiratory distress, no accessory muscle use Cardiovascular: regular rate, rhythm, normal peripheral pulses (2+ DP and PT pulses bilaterally, 2+ femoral pulses bilat), + systolic murmur (3/6 high pitched at LLSB and 2/6 at RUSB), + pertinent finding (trace pitting edema RLE) Abdomen/GI: normal bowel sounds, soft, no organomegaly, + tenderness (in RUQ without guarding or rebound) Genitourinary - Female: external genitalia normal Back: normal inspection Extremities/Musculoskelatal: + pertinent finding (significant ++TTP over right inguinal region and right mons pubis and then with +TTP but less so in right anterior thigh and tibia, good cap refill in distal extremity, no hernia palpable in inguinal or femoral region, unable to actively move RLE without causing severe pain in rt groin, passive motion of rt hip flexor causes severe pain, Right knee with mild effusion, no significant TTP over knee or ankle joints) Neurologic/Psych: alert, normal mood/affect, oriented x 3 Skin: normal color, warm/dry, no rash Lymphatic: no adenopathy RLE intractable pain- IMPROVED: - Venous Doppler US- no evidence of DVT - Tibia/fibula and femur x-ray- no acute findings - Pain control w/ Dilaudid and Tylenol PRN - PT/OT evaluations - ESR and CRP- mildly elevated - Consulted orthopedics, appreciate recommendations: -- s/p trochanteric bursa injection on 09/30 -- Ambulate as tolerated; heat & ice as needed; follow-up if needed RUQ abdominal pain, elevated LFTs, cholelithiasis: - Admitted to med/surg - Started on IV Zosyn at admission on 09/29 -- No evidence of acute camilla on HIDA, no fever/chills, no WBC- will discontinue on 09/30- received 2 doses - Elevated LFTS- trending downwards - Consulted general surgery, appreciate recommendations -- HIDA scan- no evidence of acute cholecystitis -- Follow-up outpatient in 1 week to discuss lap camilla ?UTI w/ abnormal UA and right groin pain: - UCx recommending repeat- repeat UCx- negative- received IV Zosyn x2 doses CAD s/p ULISSES 2008, aortic stenosis, mitral regurgitation, KIARA, LBBB, HTN- STABLE : - Continue ASA 81 mg daily, Plavix 75 mg daily, Crestor 40 mg HS, Imdur 60 mg daily , Metoprolol 25 mg BID, Losartan 100 mg daily - Checked mag level- WNL- continue Mag-Ox supplement 400 mg daily T2DM, diabetic gastroparesis- HgbA1C= 6.2%%- CONTROLLED: - Lantus 20 BID while NPO- continue to monitor BSG since starting diet - BSG ACHS and SSI - Continue Erythromycin daily - Resume regular home regimen at discharge CKD, stage IV, baseline Cr. 2.0- STABLE: Follow PRP Anemia of CKD, baseline hgb 10.8: B12/folate reviewed- WNL- continue B12 supplement GERD: Omeprazole changed to Protonix while inpatient- resume Omeprazole at discharge h/o breast CA: Continue Arimidex 1 mg daily h/o migraines and vertigo- STABLE Depression- STABLE GI Prophylaxis: Protonix DVT Prophylaxis: Heparin Code Status: LEVEL I, FULL Dispo: Discharge to [facility] Total Time Spent: Greater than 30 minutes This includes examination of the patient, discharge planning, medication reconciliation, and communication with other providers. (Kacy Tinoco, PA-C) PA Physician Supervision Note: I interviewed and examined the patient. Discussed with Kacy Tinoco PAC and agree with findings and plan as documented in the note. Any exceptions or clarifications are listed here: None next Patient presented with right lower extremity pain felt to be greater trochanteric bursitis, she had a bursal injection by orthopedics with good resolution of her pain, she'll [facility] Vital signs are noted stable Heart is regular lungs are clear, her right lower extremity is mildly tender to touch The patient will return for physical therapy and referral outpatient orthopedics if needed Documented By: Gilson Bird (Gilson Bird M.D.) Discharge Instructions Please refer to the electronic Patient Visit Report (Discharge Instructions) for additional information. (Kacy Tinoco, PA-C) Follow-Up Please follow-up with your PCP within 5-7 days Please follow-up with general surgery in 1 week Follow-up with orthopedics as needed Please follow-up/keep all of your subspecialty appointments (Kacy Tinoco, CAROLINAC) Additional Copies To Johana Mims M.D.
[2016-10-01 15:14] VITALS: BP 157/74; PULSE 72; TEMP 37.1; O2SAT 96
[2016-10-01 15:57] VITALS: BP 157/74; PULSE 72; TEMP 37.1; O2SAT 96
== END 2016-10-01 17:15 | disposition home or self-care (01) | DRG 445 ==
LOC: C.EDB 13:24 → C.MSN 19:23 → ENRESERV 19:42
PROVIDERS: ADMIT Family Medicine; ATTEND Internal Medicine
DX: K80.20 Calculus of gallbladder without cholecystitis without obstruction (principal); N39.0 Urinary tract infection, site not specified; N18.4 Chronic kidney disease, stage 4 (severe); M70.61 Trochanteric bursitis, right hip; M16.11 Unilateral primary osteoarthritis, right hip; M17.11 Unilateral primary osteoarthritis, right knee; M21.161 Varus deformity, not elsewhere classified, right knee; I25.10 Atherosclerotic heart disease of native coronary artery without angina pectoris; I08.0 Rheumatic disorders of both mitral and aortic valves; I44.7 Left bundle-branch block, unspecified; I12.9 Hypertensive chronic kidney disease with stage 1 through stage 4 chronic kidney disease, or unspecified chronic kidney disease; E11.22 Type 2 diabetes mellitus with diabetic chronic kidney disease; E11.43 Type 2 diabetes mellitus with diabetic autonomic (poly)neuropathy; K31.84 Gastroparesis; K74.60 Unspecified cirrhosis of liver; K75.81 Nonalcoholic steatohepatitis (NASH); D63.1 Anemia in chronic kidney disease; K21.9 Gastro-esophageal reflux disease without esophagitis; I65.29 Occlusion and stenosis of unspecified carotid artery; F32.9 Major depressive disorder, single episode, unspecified; E66.9 Obesity, unspecified; Z68.31 Body mass index [BMI] 31.0-31.9, adult; Z95.5 Presence of coronary angioplasty implant and graft; Z79.82 Long term (current) use of aspirin; Z79.02 Long term (current) use of antithrombotics/antiplatelets; Z79.4 Long term (current) use of insulin; Z79.51 Long term (current) use of inhaled steroids; Z79.899 Other long term (current) drug therapy